=== PATIENT | female | born 1950 | race Caucasian/White ===

== ENCOUNTER → 2019-04-04 08:41 | Outpatient (CLI) | payer MEDICARE, SELFPAY ==
--- NOTE | 2019-04-04 | DI.MG.S_ITS ---
BILATERAL DIGITAL SCREENING MAMMOGRAM 3D/2D WITH CAD POST LUMPECTOMY: 04/04/2019 CLINICAL: Routine screening. Personal history of left breast cancer. Family history of breast cancer. Comparison is made to exams dated: 02/22/2018 mammogram, 02/06/2017 mammogram, and 02/01/2017 mammogram - [facility]. There are scattered fibroglandular elements in both breasts. Current study was also evaluated with a Computer Aided Detection (CAD) system. There are benign post operative findings in both breasts. There also is a benign biopsy clip in the right breast. No significant masses, calcifications, or other findings are seen in either breast. There has been no significant interval change. IMPRESSION: There is no mammographic evidence of malignancy. A 1 year screening mammogram is recommended. This exam was interpreted at Station ID: [id number]. NOTE: For mammograms, a report in lay terms will be sent to the patient. Approximately 15% of breast malignancies will not be visualized mammographically. In the management of a palpable breast mass, a negative mammogram must not discourage biopsy of a clinically suspicious lesion. Electronically Signed By: Zhanna leach/tio:04/07/2019 12:48:40 copy to: John Arana letter sent: Normal Exam ACR BI-RADS Category 2: Benign Finding(s) 3342F
== END ==
PROVIDERS: PCP Family Medicine; Referring Provider Internal Medicine Hematology & Oncology; Visit Provider Family Medicine
DX: Z12.31 Encounter for screening mammogram for malignant neoplasm of breast (principal); Z85.3 Personal history of malignant neoplasm of breast; Z80.3 Family history of malignant neoplasm of breast
CPT/HCPCS: 77063; 77067

== ENCOUNTER → 2019-04-15 11:09 | Outpatient (CLI) | payer MEDICARE, SELFPAY ==
--- NOTE | 2019-04-15 | DI.CT.S_ITS ---
PROCEDURE: CT ABDOMEN PELVIS W CON INDICATIONS: ABDOMINAL PAIN TECHNIQUE: After the administration of oral and intravenous contrast, 5 mm thick sections acquired from the diaphragms to the symphysis. 5 mm thick coronal and sagittal reformats were performed. For radiation dose reduction, the following was used: automated exposure control, adjustment of mA and/or kV according to patient size. COMPARISON: [facility], CT, CT CHEST WO CON, 04/03/2016, 10:27. FINDINGS: Image quality: Excellent. ABDOMEN: Lung bases: Lung bases are clear. Heart size is normal. Solid organs: Liver is normal in size and enhancement. Gallbladder appears partially contracted. Biliary system is non-dilated. Pancreas enhances normally. Spleen is normal in size and enhancement. No adrenal nodules. Kidneys are normal in size and enhancement, without hydronephrosis. Peritoneum and bowel: Stomach, small bowel, and colon loops are normal in caliber and wall thickness. No free fluid or air. Nodes and vessels: No retroperitoneal or mesenteric adenopathy. Aorta and inferior vena cava are normal in caliber. Miscellaneous: No ventral hernias. PELVIS: Genitourinary: Bladder wall thickness is normal. Miscellaneous: No inguinal hernias or adenopathy. A normal appendix is seen in the right lower quadrant. There is mild sigmoid diverticulosis without acute diverticulitis. Bones: No suspicious bony lesions. No vertebral body compression fractures. IMPRESSION: Source of abdominal pain is not seen. Normal appendix found. Mild diverticulosis involving sigmoid colon, without acute diverticulitis. Dictated by: Montana Chatman M.D. on 04/15/2019 at 15:10 Approved by: Montana Chatman M.D. on 04/15/2019 at 15:13
== END ==
PROVIDERS: PCP Student in an Organized Health Care Education/Training Program; Visit Provider Student in an Organized Health Care Education/Training Program
DX: R10.9 Unspecified abdominal pain (principal); K57.30 Diverticulosis of large intestine without perforation or abscess without bleeding
CPT/HCPCS: 74177; Q9967

== ENCOUNTER 2019-04-25 13:18 | Day surgery (SDC) | payer MEDICARE, SELFPAY ==
[2019-04-25] VITALS (7 sets, daily range): BP systolic 116–178; BP diastolic 71–103; PULSE 86–121; RESP 11–16; TEMP 36.3–36.7; O2SAT 94–99; BMI 26.6
--- NOTE | 2019-04-25 | PATH_ITS ---
[facility] Accession Number: [id number] . 01 Material submitted: . PART A: duodenum - THIRD PORTION DOUDENUM PART B: pylorus - PYLORUS PART C: gastrointestinal site - FUNDUS PART D: gastrointestinal site - BODY PART E: esophagus, E-G Junction - GE JUNCTION PART F: colon - CECAL BIOPSY PART G: colon - ASCENDING COLON BIOPSIES 2 MM PART H: colon - HEPATIC FLEXURE BIOPSY PART I: colon - TRANSVERSE COLON BIOPSY PART J: colon - SPLENIC FLEXURE BIOPSY PART K: colon - SIGMOID . 01 Clinical history: . A-D: H.PYLORI . 02 Diagnosis: A. Duodenum, Third Part, Biopsy: Duodenal mucosa with no diagnostic abnormality. Negative for active inflammation, features of sprue, dysplasia or malignancy. . B. Pylorus, Biopsy: Gastric antral mucosa with chronic active Helicobacter pylori gastritis. A moderate number of organisms morphologically consistent with Helicobacter pylori highlighted by immunohistochemistry. Negative for intestinal metaplasia, dysplasia or malignancy. . C, D. Fundus, Body, Biopsies: Chronic active Helicobacter pylori gastritis. Negative for intestinal metaplasia, dysplasia or malignancy. . E. Gastroesophageal Junction: Squamocolumnar junctional mucosa with mild chronic inflammation. Negative for specialized intestinal metaplasia, dysplasia or malignancy. . F. Cecum, Biopsy: Colonic mucosa with no diagnostic abnormality. Negative for active or microscopic colitis. Negative for granulomata, dysplasia or malignancy. . G. Ascending Colon Polyp, 2 mm, Biopsy: Fragment of tubular adenoma and fragments of colonic mucosa with no diagnostic abnormality. . H-K. Hepatic Flexure, Transverse Colon, Splenic Flexure, Sigmoid Colon, Biopsies: Colonic mucosa with no diagnostic abnormality. Negative for active or microscopic colitis. Negative for granulomata, dysplasia or malignancy. [facility]/04/29/2019 . 02 Electronically signed: . Ilya Glover MD, PhD, Pathologist NPI- [id number] . 01 Gross description: . Part A: THIRD PORTION DOUDENUM: Received in formalin are 3 fragment(s) of ji, soft tissue measuring 0.3 x 0.2 x 0.2 cm to 0.2 x 0.1 x 0.1 cm submitted entirely in 1 cassette(s) Part B: PYLORUS: Received in formalin are 2 fragment(s) of ji, soft tissue measuring 0.5 x 0.3 x 0.2 cm to 0.3 x 0.2 x 0.1 cm submitted entirely in 1 cassette(s) Part C: FUNDUS: Received in formalin is 1 fragment(s) of ji, soft tissue measuring 0.3 x 0.3 x 0.3 cm submitted entirely in 1 cassette(s) Part D: BODY: Received in formalin is 1 fragment(s) of ji, soft tissue measuring 0.6 x 0.2 x 0.1 cm submitted entirely in 1 cassette(s) Part E: GE JUNCTION: Received in formalin are multiple fragment(s) of ji, soft tissue measuring 0.2 x 0.2 x 0.1 cm in aggregate submitted entirely in 1 cassette(s) Part F: CECAL BIOPSY: Received in formalin are 3 fragment(s) of ji, soft tissue measuring 0.8 x 0.4 x 0.1 cm to 0.3 x 0.2 x 0.1 cm submitted entirely in 1 cassette(s) Part G: ASCENDING COLON BIOPSIES 2 MM: Received in formalin are 4 fragment(s) of ji, soft tissue measuring 0.9 x 0.3 x 0.1 cm to 0.3 x 0.2 x 0.2 cm submitted entirely in 1 cassette(s) Part H: HEPATIC FLEXURE BIOPSY: Received in formalin is 1 fragment(s) of ji, soft tissue measuring 0.3 x 0.2 x 0.1 cm submitted entirely in 1 cassette(s) Part I: TRANSVERSE COLON BIOPSY: Received in formalin are 3 fragment(s) of ji, soft tissue measuring 0.5 x 0.4 x 0.1 cm to 0.2 x 0.2 x 0.1 cm submitted entirely in 1 cassette(s) Part J: SPLENIC FLEXURE BIOPSY: Received in formalin are 2 fragment(s) of ji, soft tissue measuring 0.3 x 0.3 x 0.1 cm to 0.3 x 0.2 x 0.2 cm submitted entirely in 1 cassette(s) Part K: SIGMOID: Received in formalin is 1 fragment(s) of ij, soft tissue measuring 0.8 x 0.4 x 0.1 cm submitted entirely in 1 cassette(s) /CKI /CKI . 02 Microscopic: . Part B) An immunohistochemical stain is performed to evaluate for Helicobacter organism and highlights a moderate number of organisms morphologically compatible with Helicobacter pylori. A control stain shows appropriate reactivity. . * This test was developed and its performance characteristics determined by [facility]. It has not been cleared or approved by the U.S. Food and Drug Administration. The FDA has determined that such clearance or approval is not necessary. This test is used for clinical purposes. It should not be regarded as investigational or for research. . 02 Pathologist provided ICD-10: K29.70, B96.81, D12.2, R19.4 . 02 CPT . 838847, 380241, 859593, 773722, 747115, 157469, 201131, 593008, 935052, 522259, 096976, F28011 Specimen Comment: A duplicate report has been generated due to demographic updates. Performed at: 01 [facility] [address] [address], [place], [place] [id number] MD Pierre Winston MD Phone: [phone] Performed at: [address] [id number] MD Guadalupe Snell MD Phone: [phone]
[2019-04-25] MEDS: SODIUM CHLORIDE 0.9% 1,000 ML 200 ML IV (14:08)
--- NOTE | 2019-04-25 14:59 | PM.PREOP ---
Pre-operative Note Interval Note History & Physical reviewed/Exam performed by Physician: Yes Changes to H&P: No H&P completed within 30 days and has changed as indicated here:: The current H&P was reviewed. The patient was reexamined. Re-evaluation of the patient confirms the necessity for the scheduled procedure. No change has occurred in the patient?s condition since the H&P was completed less than 30 days ago. ASA Class (for procedural sedation): III
[2019-04-25] MEDS: LIDOCAINE 4% SOLN 50 ML 20 ML TOP (15:01)
[2019-04-25] MEDS: TETRACAINE/BENZOCAINE/BUTAMBEN (CETACAINE) BOTTLE 1 SPRAY TOP (15:01)
--- NOTE | 2019-04-25 15:01 | PM.OP.ENDO ---
Operative Date/Time/Diagnoses Date of procedure: 04/25/19 Time of procedure: 15:00 Pre-op diagnosis: 1. Screening for colon cancer, 2. Hematochezia, 3. Abdominal pain, 4. Diarrhea Post-op diagnosis: other (Cecal polyp x1, 2 mm) Procedure & Clinicians Study performed: 1. Colonoscopy with cold biopsy Same procedure as scheduled: Yes Indications: Screening for colon cancer, hematochezia, abdominal pain, diarrhea Surgeon: Jaci Davila Procedure Notes SCOAP/Timeout: 15:04 Procedure in detail: ENDOSCOPIST: Jaci Davila MD PROCEDURE: Colonoscopy with cold biopsy INDICATIONS: 1. Screening for colon cancer 2. Hematochezia 3. Abdominal pain 4. Diarrhea MEDICATION: Levsin 0.125 mg sublingual, incremental doses of Versed and fentanyl until appropriate level of sedation achieved. ASA CLASS: 3 CECAL WITHDRAWAL TIME: 19 minutes COMPLICATIONS: None. EXTENT OF PROCEDURE: Cecum. QUALITY OF PREP: Good with portions of liquid stool. PROCEDURE: Prior to insertion of the colonoscope, a digital rectal examination was accomplished with circumferential palpation of the distal rectal mucosa without significant findings being noted. The high-definition colonoscope was passed into the rectum in the usual fashion and advanced over to the cecum without difficulty. The ileocecal valve, appendiceal stoma, and medial wall all could be inspected and no abnormalities were seen. Random biopsies were taken throughout withdrawal. ASCENDING COLON: As the colonoscope was withdrawn, care was taken to expose and inspect the haustral folds. A 2 mm polyp was noted and removed with cold biopsy forceps, excellent hemostasis noted. HEPATIC FLEXURE: Normal no polyps, diverticula or other abnormalities. TRANSVERSE COLON: Normal no polyps, diverticula or other abnormalities. DESCENDING COLON: Moderate diverticulosis, noninflamed, otherwise normal, no polyps or other abnormalities. One random biopsy was taken superficial to a blood vessel, bleeding noted. Hemoclip placed with excellent hemostasis. SIGMOID COLON: Moderate diverticulosis, noninflamed, otherwise normal, no polyps or other abnormalities. RECTUM: Normal. J maneuver was produced. There was no significant perianal disease. The J maneuver was broken. The remainder of the rectum was inspected and there was no external hemorrhoid disease. The scope was withdrawn. IMPRESSION: 1. Cecal polyp x1, 2 mm, removed with cold biopsy forceps 2. Left-sided diverticulosis, moderate PLAN: 1. Follow-up clinic status post pathology results. The possibility of a missed lesion including a malignancy has been discussed with the patient previously. Potential alarm symptoms have been discussed and should be reported immediately. Scope withdrawal time: 19 minutes Sedation minutes: 42 Findings: polyp Recommendations: Other recommendation (Follow up in clinic in 2 weeks.) Follow up: weeks (2) Disposition: PACU
--- NOTE | 2019-04-25 15:09 | SUR.OPER ---
UPPER DENTURES AND GLASSES IN LABELED CONTAINERS TO PACU WITH PATIENT
--- NOTE | 2019-04-25 15:29 | SUR.OPER ---
H AND P WRITTEN FORM TO CHART- Silviano OCONNOR RN AND Red SHERIDAN RN
[2019-04-25] MEDS: MIDAZOLAM 5 MG/5 ML VIAL IV (15:33)
[2019-04-25] MEDS: fentaNYL 250 MCG/5 ML INJ IV (15:34)
--- NOTE | 2019-04-25 15:59 | SUR.PHASEI ---
Dr tyler, showing pictures to patient. Pt. aroused easily, resp unlabored, skin warm and dry.
--- NOTE | 2019-04-25 16:06 | PM.OP.ENDO ---
Operative Date/Time/Diagnoses Date of procedure: 04/25/19 Time of procedure: 15:00 Pre-op diagnosis: 1. Hematochezia, 2. Abdominal pain, 3. Diarrhea Post-op diagnosis: same Procedure & Clinicians Study performed: EGD with biopsy Same procedure as scheduled: Yes Indications: 1. Hematochezia, 2. Abdominal pain, 3. Diarrhea Surgeon: Jaci Davila Procedure Notes SCOAP/Timeout: 1504 Procedure in detail: ENDOSCOPIST: Jaci Davila MD PROCEDURE: EGD with biopsy INDICATIONS: 1. Hematochezia 2. Abdominal pain 3. Diarrhea MEDICATION: Incremental doses of Versed and fentanyl until an appropriate level of sedation was achieved. ASA Ratin DURATION OF PROCEDURE: 15 minutes. COMPLICATIONS: None. LIMITATIONS: None EXTENT OF PROCEDURE: Third portion of the Duodenum. PROCEDURE: The high-definition gastroduodenoscope was introduced into the posterior oropharynx under direct vision after Hurricaine spray, noted IV sedation, and proper informed consent. The esophagus was identified and intubated under direct visualization. The scope was quickly passed through the esophagus and into the fundus of the stomach. A clear fundal pool was aspirated. The scope was then advanced to the antrum and the pylorus was identified. The scope was passed through the pylorus into the second and third portions of the duodenum. No abnormalities were noted in the duodenum, duodenal bulb or pyloric channel. Random biopsies taken x2. The antrum had mild superficial hyperemesis, random biopsies taken x2. J maneuver was produced. No abnormalities were noted of the proximal body, fundus or cardia. Random biopsy taken x1. No hiatal hernia was noted. Scope was broken out of the J maneuver and the remainder of the stomach was carefully inspected upon withdrawal and was normal. The stomach was carefully deflated of all air on withdrawal. The distal esophagus was carefully inspected and the Z line was noted to be irregular with the top of the gastric folds at 37 cm, most proximal circumferential extent at 36 cm and the maximum extent of the metaplasia at 35 cm. The remainder of the esophagus was normal upon withdrawal. The larynx and vocal cords appeared to be unremarkable. IMPRESSION: 1. Antritis, mild 2. Irregular Z-line 3. 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 Follow-up in clinic status post pathology results. The possibility of missed lesion including a malignancy was discussed prior with the patient. Potential alarm symptoms have been discussed and should be reported by the patient immediately. Scope withdrawal time: 15 minutes Sedation minutes: 15 Findings: other findings (ESOM C1M2, antritis) Complications: none Recommendations: Other recommendation (Follow-up in clinic status post pathology results.) Follow up: weeks (2) Disposition: PACU
--- NOTE | 2019-04-25 16:12 | SUR.PHASEI ---
Addendum entered by Racheal Cook R.N. 04/25/19 16:14: Scot Vizcaino RN did not assume care of this patient (took over another patient). Original Note: Patient aroused spontaneous, acknowledged that she would like some ice chips, Pt. fell asleep while they were being obtained. VSS Report to Scot Vizcaino RN
--- NOTE | 2019-04-25 16:24 | SUR.PHASEI ---
Stable, swallowing without difficulty. Glasses and upper denture returned to patient.
--- NOTE | 2019-04-25 17:50 | SUR.PHASEII ---
Pt dressed when ready and left when ready and in stable condition.
== END 2019-04-25 17:15 | disposition home or self-care (01) ==
PROVIDERS: PCP Student in an Organized Health Care Education/Training Program; Visit Provider Student in an Organized Health Care Education/Training Program
PROC: 0DJ08ZZ Inspection of Upper Intestinal Tract, Via Natural or Artificial Opening Endoscopic (ICD-10-PCS; CPT 43235; principal; 2019-04-25 15:00)
PROC: 0DJD8ZZ Inspection of Lower Intestinal Tract, Via Natural or Artificial Opening Endoscopic (ICD-10-PCS; CPT 45378; 2019-04-25 15:00)
DX: K29.70 Gastritis, unspecified, without bleeding (principal); B96.81 Helicobacter pylori [H. pylori] as the cause of diseases classified elsewhere; K57.30 Diverticulosis of large intestine without perforation or abscess without bleeding; D12.2 Benign neoplasm of ascending colon
CPT/HCPCS: 45380; 88305; 88342; J2250; J3010

== ENCOUNTER → 2020-05-05 11:51 | Outpatient (CLI) | payer MEDICARE, SELFPAY ==
--- NOTE | 2020-05-05 | DI.MG.S_ITS ---
BILATERAL DIGITAL SCREENING MAMMOGRAM 3D/2D WITH CAD POST LUMPECTOMY: 05/05/2020 CLINICAL: Routine screening. Family history of breast cancer. Breast cancer. Comparison is made to exams dated: 04/04/2019 mammogram - [facility], 02/22/2018 mammogram, and 02/06/2017 mammogram - [facility]. There are scattered fibroglandular elements in both breasts. Current study was also evaluated with a Computer Aided Detection (CAD) system. There are benign post operative findings and biopsy clip in the right breast. There also are benign post operative findings in the left breast. No significant masses, calcifications, or other findings are seen in either breast. There has been no significant interval change. IMPRESSION: There is no mammographic evidence of malignancy. A 1 year screening mammogram is recommended. This exam was interpreted at Station ID: [id number]. NOTE: For mammograms, a report in lay terms will be sent to the patient. Approximately 15% of breast malignancies will not be visualized mammographically. In the management of a palpable breast mass, a negative mammogram must not discourage biopsy of a clinically suspicious lesion. Electronically Signed By: Anthony conley/tio:05/06/2020 09:33:25 letter sent: Normal Exam ACR BI-RADS Category 2: Benign Finding(s) 3342F
== END ==
PROVIDERS: PCP Student in an Organized Health Care Education/Training Program; Referring Provider Student in an Organized Health Care Education/Training Program; Visit Provider Student in an Organized Health Care Education/Training Program
DX: Z12.31 Encounter for screening mammogram for malignant neoplasm of breast (principal); Z85.3 Personal history of malignant neoplasm of breast; Z80.3 Family history of malignant neoplasm of breast
CPT/HCPCS: 77063; 77067

== ENCOUNTER → 2021-02-16 12:22 | Outpatient (ROUT) | payer MEDICARE, SELFPAY ==
[2021-02-16 12:27] LABS: Add Manual Diff / Slide Review NO; Basophils Absolute Auto 0 /uL (0-100); Basophils Percent Auto 0.3 % (0-2); Eosinophils Absolute Auto 0 /uL (0-450); Eosinophils Percent Auto 0.3 % (2-4); Hematocrit 42.6 % (36-46); Hemoglobin 14.1 g/dL (12.0-16.0); Lymphocytes Absolute Auto 3400 /uL (1100-4500); Lymphocytes Percent Auto 21.7 % (25-40); Mean Corpuscular Hemoglobin 27.9 PG (26-34); Mean Corpuscular Volume 84.6 fL (80-100); Monocytes Absolute Auto 800 /uL (0-900); Neutrophils Absolute Auto 11400 /uL (1500-7000); Neutrophils Percent Auto 72.7 % (50-75); Platelet Count 426 X10^3/uL (150-400); Red Blood Cell Count 5.04 X10^6/uL (4.0-5.2); Red Cell Distribution Width 14.5 % (11.6-14.8); White Blood Cell Count 15.6 X10^3/uL (4.5-11.0)
[2021-02-16 12:41] LABS: Alanine Aminotransferase 22 IU/L (<35); Albumin 4.4 g/dL (3.5-5.0); Albumin Globulin Ratio 1.2 (1.0-2.8); Alkaline Phosphatase 123 U/L (38-126); Aspartate Aminotransferase 34 IU/L (14-36); BUN Creatinine Ratio 20.9 (6-22); Bilirubin Total 0.2 mg/dL (0.2-1.3); Blood Urea Nitrogen 19 mg/dL (7-17); Calcium 9.8 mg/dL (8.4-10.2); Carbon Dioxide 25 mmol/L (22-32); Chloride 107 mmol/L (98-107); Estimated Glomerular Filt Rate > 60.0 mL/min (>60); Globulin 3.6 g/dL (1.7-4.1); Glucose 103 mg/dL (80-110); HEMOLYSIS < 15 (0-50); Potassium 4.3 mmol/L (3.4-5.1); Sodium 141 mmol/L (137-145)
== END ==
PROVIDERS: PCP Student in an Organized Health Care Education/Training Program; Visit Provider Family Medicine
DX: I10 Essential (primary) hypertension (principal); R53.83 Other fatigue; R00.0 Tachycardia, unspecified
CPT/HCPCS: 80053; 84443; 85025

== ENCOUNTER → 2022-11-01 10:53 | Outpatient (ROUT) | payer MEDICARE, SELFPAY ==
[2022-11-01 12:14] LABS: COVID-19 CEPHEID 4-PLEX PCR Negative (Negative); Influenza A - CEPHEID Flu A NEGATIVE (NEGATIVE); Influenza B - CEPHEID Flu B NEGATIVE (NEGATIVE); Respiratory Syncytial Virus Negative (Negative)
== END ==
PROVIDERS: PCP Student in an Organized Health Care Education/Training Program; Visit Provider Family Medicine
DX: R05.9 Cough, unspecified (principal); R68.83 Chills (without fever); R06.02 Shortness of breath
CPT/HCPCS: 0241U

== ENCOUNTER → 2023-03-22 08:09 | Outpatient (CLI) | payer MEDICARE, SELFPAY ==
--- NOTE | 2023-03-22 | DI.MG.S_ITS ---
BILATERAL DIGITAL SCREENING MAMMOGRAM 3D/2D WITH CAD POST LUMPECTOMY: 03/22/2023 CLINICAL: Routine screening. Personal history of left breast cancer. Family history of breast cancer. Comparison is made to exams dated: 05/05/2020 mammogram, 04/04/2019 mammogram - [facility], and 02/22/2018 mammogram - [facility]. There are scattered areas of fibroglandular density in both breasts (category b / 25%-50% glandular tissue). Current study was also evaluated with a Computer Aided Detection (CAD) system. There are benign post operative findings and biopsy clip in the right breast. There also are benign post operative findings in the left breast. No significant masses, calcifications, or other findings are seen in either breast. There has been no significant interval change. IMPRESSION: BENIGN There is no mammographic evidence of malignancy. A 1 year screening mammogram is recommended. This exam was interpreted at Station ID: [id number]. NOTE: For mammograms, a report in lay terms will be sent to the patient. Approximately 15% of breast malignancies will not be visualized mammographically. In the management of a palpable breast mass, a negative mammogram must not discourage biopsy of a clinically suspicious lesion. Electronically Signed By: Chan villarreal/tio:03/22/2023 08:55:41 letter sent: Normal Exam ACR BI-RADS Category 2: Benign Finding(s) 3342F
== END ==
PROVIDERS: PCP Family Medicine; Referring Provider Family Medicine; Visit Provider Family Medicine
DX: Z12.31 Encounter for screening mammogram for malignant neoplasm of breast (principal); Z85.3 Personal history of malignant neoplasm of breast; Z80.3 Family history of malignant neoplasm of breast
CPT/HCPCS: 77063; 77067

== ENCOUNTER → 2023-10-12 08:20 | Outpatient (CLI) | payer MEDICARE, SELFPAY ==
[2023-10-12 09:34] LABS: Alanine Aminotransferase 23 IU/L (<35); Albumin 4.5 g/dL (3.5-5.0); Albumin Globulin Ratio 1.3 (1.0-2.8); Alkaline Phosphatase 120 U/L (38-126); Aspartate Aminotransferase 34 IU/L (14-36); BUN Creatinine Ratio 17.5 (6-22); Bilirubin Total 0.4 mg/dL (0.2-1.3); Blood Urea Nitrogen 21 mg/dL (7-17); Calcium 10.2 mg/dL (8.4-10.2); Carbon Dioxide 26 mmol/L (22-32); Chloride 104 mmol/L (98-107); Estimated Glomerular Filt Rate 47 mL/min (>60); Globulin 3.6 g/dL (1.7-4.1); Glucose 119 mg/dL (80-110); HEMOLYSIS < 15 (0-50); Sodium 142 mmol/L (137-145); Total Protein 8.1 g/dL (6.3-8.2)
[2023-10-12 09:39] LABS: Potassium 5.7 mmol/L (3.4-5.1)
== END ==
PROVIDERS: PCP Registered Nurse; Referring Provider Registered Nurse; Visit Provider Registered Nurse
DX: N28.9 Disorder of kidney and ureter, unspecified (principal)
CPT/HCPCS: 36415; 80053

== ENCOUNTER 2023-10-12 11:11 | Emergency (ER) | payer MEDICARE, SELFPAY ==
[2023-10-12] VITALS (24 sets, daily range): BP systolic 108–193; BP diastolic 59–123; PULSE 85–134; RESP 12–35; TEMP 36.7; O2SAT 92–98; BMI 26.3
--- NOTE | 2023-10-12 11:41 | DI.RAD.S_ITS ---
PROCEDURE: XR CHEST 1V INDICATIONS: chest pain TECHNIQUE: One view of the chest was acquired. COMPARISON: [facility], , CHEST 2 VIEW, 12/15/2013, 15:40. FINDINGS: Surgical changes and devices: None. Lungs and pleura: Lungs are clear. No pleural effusions or pneumothorax. Mediastinum: Mediastinal contours appear normal. Heart size is normal. Bones and chest wall: No suspicious bony lesions. Overlying soft tissues appear unremarkable. IMPRESSION: No acute cardiopulmonary process. Dictated by: Marilyn Ring M.D. on 10/12/2023 at 12:20 Approved by: Marilyn Ring M.D. on 10/12/2023 at 12:20
[2023-10-12 11:56] LABS: INR 1.2 (0.9-1.3); Prothrombin Time 13.9 SECONDS (9.4-12.5)
[2023-10-12 11:59] LABS: PTT Partial Thromboplastin Tim 29 SECONDS (25.1-36.5)
[2023-10-12] MEDS: METOPROLOL ER 25 MG TABLET PO (11:59)
[2023-10-12] MEDS: OXYCODONE/ACETAMINOPHEN 5/325 TABLET 1 TAB PO (11:59)
[2023-10-12 12:00] LABS: Alanine Aminotransferase 23 IU/L (<35); Albumin 4.5 g/dL (3.5-5.0); Albumin Globulin Ratio 1.1 (1.0-2.8); Alkaline Phosphatase 124 U/L (38-126); Aspartate Aminotransferase 34 IU/L (14-36); BUN Creatinine Ratio 17.8 (6-22); Bilirubin Total 0.5 mg/dL (0.2-1.3); Blood Urea Nitrogen 21 mg/dL (7-17); Carbon Dioxide 24 mmol/L (22-32); Chloride 106 mmol/L (98-107); Creatine Kinase 72 U/L (30-135); Estimated Glomerular Filt Rate 48 mL/min (>60); Globulin 4.1 g/dL (1.7-4.1); Glucose 112 mg/dL (80-110); HEMOLYSIS < 15 (0-50); Magnesium 2.2 mg/dL (1.6-2.3); Potassium 4.5 mmol/L (3.4-5.1); Sodium 139 mmol/L (137-145); Total Protein 8.6 g/dL (6.3-8.2)
[2023-10-12] MEDS: ASPIRIN 81 MG CHEW TAB 324 MG PO (12:00)
[2023-10-12 12:02] LABS: Add Manual Diff / Slide Review NO; Basophils Absolute Auto 100 /uL (0-100); Basophils Percent Auto 0.4 % (0-2); Eosinophils Absolute Auto 100 /uL (0-450); Eosinophils Percent Auto 0.4 % (2-4); Hematocrit 40.5 % (36-46); Hemoglobin 13.3 g/dL (12.0-16.0); Lymphocytes Absolute Auto 3600 /uL (1100-4500); Mean Corpuscular HGB Conc 32.8 % (30-36); Mean Corpuscular Hemoglobin 28.1 PG (26-34); Mean Corpuscular Volume 85.7 fL (80-100); Monocytes Absolute Auto 900 /uL (0-900); Monocytes Percent Auto 5.3 % (3-14); Neutrophils Absolute Auto 11800 /uL (1500-7000); Neutrophils Percent Auto 71.9 % (50-75); Platelet Count 459 X10^3/uL (150-400); Red Blood Cell Count 4.72 X10^6/uL (4.0-5.2); Red Cell Distribution Width 14.3 % (11.6-14.8); White Blood Cell Count 16.4 X10^3/uL (4.5-11.0)
[2023-10-12 12:12] LABS: Troponin I < 0.012 ng/mL (0.01-0.034)
[2023-10-12 12:20] LABS: Lipase 245 U/L (23-300)
--- NOTE | 2023-10-12 12:35 | ED.CHESTPAIN ---
HPI - Chest Pain General Chief Complaint: Chest Pain Stated Complaint: Sent from PCP for swelling and changes to CMP Time Seen by Provider: 10/12/23 11:50 Source: patient Mode of arrival: Ambulatory Limitations: no limitations History of Present Illness HPI narrative: 73-year-old woman with a history of hypertension, hyperlipidemia, depression presents to her primary care doctor complaining of left chest wall pain wrapping from front to back described as an 8/10. Described fevers and chills this morning and increasing pain such that she came in to see her provider. Pain has been present for approximately 3 days. Labs were checked and she was noted to have an elevated potassium at 5.7. She describes the pain as deep within the chest worse with moving, coughing and lying on the left side. She does have a distant history of breast cancer with radiation treatment to that breast. She is not describing any palpitations or lower extremity edema. No nausea vomiting or diarrhea. No headaches Related Data Home Medications Medication Instructions Recorded Confirmed ramipril 10 mg capsule (Altace) 10 mg PO QDAY ##0 02/11/13 04/25/19 venlafaxine 150 mg tablet,extended 150 mg PO QDAY ##0 02/11/13 04/25/19 release 24 hr venlafaxine 75 mg tablet,extended 75 mg PO QDAY ##0 02/11/13 04/25/19 release 24 hr atorvastatin 20 mg tablet 20 mg PO DAILY 04/25/19 04/25/19 metoprolol succinate 25 mg capsule 25 mg PO DAILY 04/25/19 10/12/23 sprinkle, ext. release 24 hr ramipril 10 mg capsule 10 mg PO DAILY 10/12/23 10/12/23 Previous Rx's Medication Instructions Recorded lidocaine 5 % topical patch 1 patch topical DAILY #15 ea 10/12/23 (DermacinRx Lidocan) oxycodone 5 mg tablet 5 mg PO Q6H PRN pain #10 tabs 10/12/23 polyethylene glycol 3350 17 17 g PO DAILY #238 grams 10/12/23 gram/dose oral powder (Miralax) valacyclovir 1 gram tablet 1,000 mg PO TID #21 tabs 10/12/23 Allergies Allergy/AdvReac Type Severity Reaction Status Date / Time No Known Drug Allergies Allergy Verified 10/12/23 11:29 Review of Systems Review of Systems Narrative: Pertinent positive and negative findings as per HPI Patient History Medical History (Updated 10/12/23 @ 16:38 by Corie Bautista MD) History of breast cancer Depression Hypertension Social History household members: friend(s) Smoking Status: Never smoker Smoking Status: Never smoker alcohol intake frequency: 0-2 drinks per day Substance Use Type: does not use Exam Initial Vital Signs Initial Vital Signs: Vital Signs Temperature 98.1 F 10/12/23 11:23 Pulse Rate 134 H 10/12/23 11:23 Respiratory Rate 20 10/12/23 11:23 Blood Pressure 135/87 10/12/23 11:23 Pulse Oximetry 98 10/12/23 11:23 Oxygen Delivery Method Room Air 10/12/23 11:23 General: In moderate distress holding onto her left side in the axillary area just lateral to her breast. Able to give a complete and coherent history. Well-nourished well-developed HEENT: Moist mucous membranes, normal sclera with reactive pupils, Neck: No JVD, supple Respiratory: Lungs are clear to auscultation, no wheezing no rales no rhonchi. Full and symmetrical air movement Chest: Breast is post mastectomy with some radiation scarring and skin changes. No evidence of cellulitis. No shingles. Cardiac: Tachycardic without murmurs Abdomen: Soft, nontender, good bowel tones, no flank pain Skin: Warm and dry, no rashes Neurologic: Grossly neurologically intact with no obvious asymmetries or abnormalities Extremities: No trauma, well perfused Psych: Cooperative, appropriate insight and affect Course Orders Ordered: ED Orders 10/12/23 11:36 Complete Blood Count AUTO DIFF Stat Comprehensive Metabolic Panel Stat Lipase Stat Magnesium Stat PTT Partial Thromboplastin Jamarcus Stat Prothrombin Time INR Stat Troponin & CK Cardiac Panel Stat 10/12/23 11:41 XR chest 1V Stat 10/12/23 11:43 EKG-12 Lead Stat 10/12/23 12:51 CT angio chest PE protocol Stat Discontinued Medications Aspirin (Aspirin 81 Mg Chew Tab) 324 mg PO NOW ONE Stop: 10/12/23 11:42 Last Admin: 10/12/23 12:00 Dose: 324 mg Documented By: PAOLA Labetalol HCl (Labetalol 20 Mg/4 Ml Syringe) 20 mg IV NOW ONE Stop: 10/12/23 12:59 Last Admin: 10/12/23 13:03 Dose: 20 mg Documented By: PAOLA Metoprolol Succinate (Metoprolol Er 25 Mg Tablet) 25 mg PO NOW ONE Stop: 10/12/23 11:54 Last Admin: 10/12/23 11:59 Dose: 25 mg Documented By: PAOLA Oxycodone/Acetaminophen (Oxycodone/Acetaminophen 5/325 Tablet) 1 tab PO NOW ONE Stop: 10/12/23 11:56 Last Admin: 10/12/23 11:59 Dose: 1 tab Documented By: PAOLA Vital Signs Vital signs: Vital Signs - 8 hr 10/12/23 11:23 10/12/23 11:39 10/12/23 11:49 Temperature 98.1 F Pulse Rate 134 H 125 H Respiratory Rate 20 Blood Pressure 135/87 178/96 H Pulse Oximetry 98 96 Oxygen Delivery Method Room Air 10/12/23 11:49 10/12/23 11:59 10/12/23 12:00 Temperature Pulse Rate 116 H 130 H Respiratory Rate 25 H Blood Pressure 178/96 H 170/84 H Pulse Oximetry 95 Oxygen Delivery Method 10/12/23 12:00 10/12/23 12:15 10/12/23 12:30 Temperature Pulse Rate 114 H 112 H 112 H Respiratory Rate 18 18 18 Blood Pressure Pulse Oximetry 94 94 Oxygen Delivery Method 10/12/23 12:30 10/12/23 12:45 10/12/23 12:47 Temperature Pulse Rate 109 H Respiratory Rate 14 Blood Pressure 183/101 H 182/123 H Pulse Oximetry 93 Oxygen Delivery Method 10/12/23 12:47 10/12/23 13:00 10/12/23 13:00 Temperature Pulse Rate 112 H 109 H Respiratory Rate 35 H 24 Blood Pressure 193/96 H Pulse Oximetry 93 93 Oxygen Delivery Method 10/12/23 13:03 10/12/23 13:12 10/12/23 13:12 Temperature Pulse Rate 103 H 93 H Respiratory Rate 33 H Blood Pressure 193/96 H 140/69 Pulse Oximetry 92 Oxygen Delivery Method 10/12/23 13:24 10/12/23 13:24 10/12/23 13:30 Temperature Pulse Rate 90 99 H Respiratory Rate 24 22 Blood Pressure 134/71 Pulse Oximetry 94 92 Oxygen Delivery Method 10/12/23 13:40 10/12/23 13:40 10/12/23 13:45 Temperature Pulse Rate 90 87 Respiratory Rate 26 H 13 Blood Pressure 119/65 Pulse Oximetry 93 93 Oxygen Delivery Method 10/12/23 13:51 10/12/23 14:00 10/12/23 14:00 Temperature Pulse Rate 88 85 Respiratory Rate 15 Blood Pressure 119/65 108/59 L Pulse Oximetry 93 Oxygen Delivery Method 10/12/23 14:15 10/12/23 14:20 10/12/23 14:20 Temperature Pulse Rate 85 85 Respiratory Rate 13 16 Blood Pressure 110/59 L Pulse Oximetry 92 92 Oxygen Delivery Method 10/12/23 14:30 10/12/23 14:40 10/12/23 14:40 Temperature Pulse Rate 87 87 Respiratory Rate 14 14 Blood Pressure 118/68 Pulse Oximetry 93 93 Oxygen Delivery Method 10/12/23 14:45 Temperature Pulse Rate 86 Respiratory Rate 19 Blood Pressure Pulse Oximetry 93 Oxygen Delivery Method MDM - Chest Pain Lab Data 10/12/23 11:36 10/12/23 11:36 Labs: Lab Results 10/12/23 Range/Units 11:36 WBC 16.4 H (4.5-11.0) X10^3/uL RBC 4.72 (4.0-5.2) X10^6/uL Hgb 13.3 (12.0-16.0) g/dL Hct 40.5 (36-46) % MCV 85.7 (80-100) fL MCH 28.1 (26-34) PG MCHC 32.8 (30-36) % RDW 14.3 (11.6-14.8) % Plt Count 459 H (150-400) X10^3/uL Neut % (Auto) 71.9 (50-75) % Lymph % (Auto) 22.0 L (25-40) % Kerr % (Auto) 5.3 (3-14) % Eos % (Auto) 0.4 L (2-4) % Baso % (Auto) 0.4 (0-2) % Neut # (Auto) 11838 H (8926-4501) /uL Lymph # (Auto) 3600 (9294-9414) /uL Kerr # (Auto) 900 (0-900) /uL Eos # (Auto) 100 (0-450) /uL Baso # (Auto) 100 (0-100) /uL PT 13.9 H (9.4-12.5) SECONDS INR 1.2 (0.9-1.3) APTT 29 (25.1-36.5) SECONDS Sodium 139 (137-145) mmol/L Potassium 4.5 D (3.4-5.1) mmol/L Chloride 106 (98-107) mmol/L Carbon Dioxide 24 (22-32) mmol/L BUN 21 H (7-17) mg/dL Creatinine 1.18 H (0.52-1.04) mg/dL Estimated GFR 48 L (>60) mL/min BUN/Creatinine Ratio 17.8 (6-22) Glucose 112 H (80-110) mg/dL Calcium 10.0 (8.4-10.2) mg/dL Magnesium 2.2 (1.6-2.3) mg/dL Total Bilirubin 0.5 (0.2-1.3) mg/dL AST 34 (14-36) IU/L ALT 23 (<35) IU/L Alkaline Phosphatase 124 (38-126) U/L Total Creatine Kinase 72 (30-135) U/L Troponin I < 0.012 (0.01-0.034) ng/mL Total Protein 8.6 H (6.3-8.2) g/dL Albumin 4.5 (3.5-5.0) g/dL Globulin 4.1 (1.7-4.1) g/dL Albumin/Globulin Ratio 1.1 (1.0-2.8) Lipase 245 (23-300) U/L Urine Dip Bedside Urine Glucose Negative Bedside Urine Bilirubin - Negative Bedside Urine Ketone - Negative Urine Specific [place] 1.015 Bedside Urine Occult Blood - Negative Bedside Urine pH 5.5 Bedside Urine Protein - Negative Bedside Urine Urobilinogen - Negative Bedside Urine Nitrite - Negative Bedside Urine Leukocytes - Negative Esterase MDM Narrative Medical decision making narrative: CC: Left chest wall/chest pain for 4 days Complicating co-morbidities: Prior breast cancer, radiation scarring to the same area, hypertension, hyperlipidemia, depression Data collected from: patient Medical records reviewed: No significant medical records are available Differential considered: Pulmonary embolism, pneumonia, compression fracture, zoster prodrome, pneumothorax, acute coronary syndrome was felt to be less likely Exam documented above, pertinent findings include: Patient is holding under her left breast into the left axillary area to help with pain but no abnormal skin findings aside from radiation changes and scarring from her mastectomy are appreciated. She has full and symmetrical air movement and is able to speak in full sentences. Cardiac exam is unremarkable. Abdomen is benign Lab Test results independently reviewed as above. Pertinent findings: CBC shows a leukocytosis at 16.4 without left shift this is similar to CBC in February of 2021 Chemistries show normal potassium at 4.5, creatinine seems to be close to her baseline at 1.18. Liver studies are unremarkable Troponin is undetectable Independently reviewed EKG: Sinus tachycardia at a rate of 115. Rightward axis, no acute ischemic changes Imaging studies independently reviewed: Chest x-ray is unremarkable CT of the chest shows significant kyphoscoliosis no new compression fractures and no acute abnormalities with Radiology interpretation indicating no pulmonary embolus and no acute cardiopulmonary process. Treatments: Patient is given her usual dose of metoprolol as well as an IV dose of labetalol for blood pressure control with success. She is given a single oxycodone and had taken combination ibuprofen/Tylenol prior to arrival. Pain was moderately well controlled. -evaluations: Discussion: 73-year-old woman with left-sided pain in a T5 distribution with no rash or changes appreciated. She was tachycardic and hypertensive. CT angiogram does not show pulmonary embolism. There was initial concern for hyperkalemia that I think was lab error as repeat was appropriate. There was no evidence of leukocytosis and no suggestion of anemia. Pain was moderately controlled with Percocet. Reviewed with her findings and relatively unremarkable workup at this time. I am still concerned that this is a zoster prodrome given the remarkable dermatomal distribution for this. She has had a shingles vaccine. We very clearly reviewed symptoms of shingles. I have given her a prescription for valacyclovir to take should she notice any type of rash developing in this area in the next 1-2 days. In the meantime she is currently using [id number] combination ibuprofen acetaminophen recommended 2 pills every 6 hours and if she has pain that is not controlled she can add an additional 5 mg of oxycodone. If she uses oxycodone she needs to add MiraLax. I have also given her a lidocaine patch to try and if this is effective she can have that prescription filled as well. Have encouraged to return to the emergency department if symptoms worsen or change Discharge Plan Departure Patient Disposition: Home Clinical Impression: Acute chest wall pain Instructions: DI for Shingles Activity Restrictions/Additional Instructions: Thank you for coming in today I did not find any life-threatening explanation for your pain today. You do not have pneumonia, you do not have blood clots in her lungs, there is no new compression fracture or rib fractures appreciated. There is no evidence of heart attack or collapsed lung. Given the distribution of your pain in the single strip just along the left side, I am concerned that this is pain that you are noticing just before a shingles outbreak. I have given you a prescription for [place] acyclovir, an antiviral medication. If you notice any type of redness or blisters at all in the area along the left strip were you are hurting, please start the valacyclovir. In the meantime, you can use 2 of the [id number] combination ibuprofen Tylenol pills every 6 hours. If your pain is not controlled with this you can add 5 mg of oxycodone. Oxycodone is a narcotic and will make you constipated. If you do use the oxycodone, please take a stool softener as well. I have given you a prescription for MiraLax, I typically recommend 1 capful of MiraLax everyday that you take a narcotic We placed a lidocaine patch over the painful area today. If you find this helpful, you can have that prescription filled as well. All prescriptions were electronically transmitted to [facility] [facility] If you find that you are getting worse or develop any new symptoms, please feel free to return to the emergency department for further evaluation. Prescriptions: New valacyclovir 1 gram tablet 1,000 mg PO TID Qty: 21 0RF oxycodone 5 mg tablet 5 mg PO Q6H PRN (Reason: pain) Qty: 10 0RF polyethylene glycol 3350 [Miralax] 17 gram/dose powder 17 g PO DAILY Qty: 238 0RF lidocaine [DermacinRx Lidocan] 5 % adhesive patch,medicated 1 patch topical DAILY Qty: 15 1RF Rx Instructions: leave on most painful area for up to 12 hrs No Action ramipril [Altace] 10 MG capsule 10 mg PO QDAY Qty: 0 venlafaxine 75 MG tablet extended release 24hr 75 mg PO QDAY Qty: 0 venlafaxine 150 MG tablet extended release 24hr 150 mg PO QDAY Qty: 0 atorvastatin 20 mg Tablet 20 mg PO DAILY metoprolol succinate 25 mg Cap,Sprinkle,Er 24hr Dose Pack 25 mg PO DAILY ramipril 10 mg capsule 10 mg PO DAILY Referrals: Kimberly Manzanares ARNP [Primary Care Provider] - Stand Alone Forms: Patient Portal/API
--- NOTE | 2023-10-12 12:51 | DI.CT.S_ITS ---
PROCEDURE: CT ANGIO CHEST PE PROTOCOL INDICATIONS: tachy, Left chest pain TECHNIQUE: After the administration of intravenous contrast, 2 mm thick sections acquired from the pulmonary apices to the posterior costophrenic angles. 3-dimensional maximum intensity projection (MIP) coronal and sagittal reformats were then acquired through the thorax. For radiation dose reduction, the following was used: automated exposure control, adjustment of mA and/or kV according to patient size. COMPARISON: None. FINDINGS: Image quality: Diagnostic. Pulmonary arteries: Pulmonary arteries are normal in size, and demonstrate no intraluminal filling defects to suggest central pulmonary embolism. Lower Neck: No enlarged lymph nodes. Thyroid: No thyroid nodules which require sonographic follow up, per consensus guidelines. Axillae: No enlarged lymph nodes. Chest Wall: Unremarkable. Bones: Unremarkable. Lungs and Pleura: No pneumothorax or pleural effusions. No consolidation or suspicious nodules. Heart: Heart size is normal. No pericardial effusion. Thoracic Vessels: No aortic aneurysm. Mediastinum and [place]: No enlarged lymph nodes. Esophagus: No wall thickening. No hiatal hernia. Upper Abdomen: Visualized upper abdomen solid organs and bowel loops appear normal. IMPRESSION: No pulmonary embolus. No acute cardiopulmonary process. Dictated by: Montana Chatman M.D. on 10/12/2023 at 13:56 Approved by: Montana Chatman M.D. on 10/12/2023 at 13:58
[2023-10-12] MEDS: LABETALOL 20 MG/4 ML SYRINGE IV (13:03)
[2023-10-12] MEDS: LIDOCAINE 5% PATCH 1 EACH TOP (16:49)
== END 2023-10-12 16:55 | disposition home or self-care (01) ==
PROVIDERS: Emergency Provider Emergency Medicine; PCP Registered Nurse
DX: R07.89 Other chest pain (principal); R00.0 Tachycardia, unspecified; N28.9 Disorder of kidney and ureter, unspecified
CPT/HCPCS: 36415; 71045; 71275; 80053; 81003; 82550; 83690; 83735; 84484; 85025; 85610; 85730; 93005; 96374; 99284; Q9967

== ENCOUNTER 2023-10-25 12:13 | Emergency (ER) | payer MEDICARE, SELFPAY ==
[2023-10-25] VITALS (28 sets, daily range): BP systolic 116–197; BP diastolic 68–103; PULSE 84–101; RESP 15–28; TEMP 36.8–36.9; O2SAT 92–98; BMI 29.9
--- NOTE | 2023-10-25 12:21 | DI.RAD.S_ITS ---
PROCEDURE: XR CHEST 1V INDICATIONS: chest pain TECHNIQUE: One view of the chest was acquired. COMPARISON: [facility], CR, XR CHEST 1V, 10/12/2023, 11:49. FINDINGS: Surgical changes and devices: None. Lungs and pleura: Lungs are clear. No pleural effusions or pneumothorax. Mediastinum: Mediastinal contours appear normal. Heart size is normal. Bones and chest wall: No suspicious bony lesions. Overlying soft tissues appear unremarkable. IMPRESSION: No acute cardiopulmonary abnormality is seen. Dictated by: Evangelista Wall M.D. on 10/25/2023 at 13:53 Approved by: Evangelista Wall M.D. on 10/25/2023 at 13:53
[2023-10-25 12:40] LABS: Add Manual Diff / Slide Review NO; Basophils Absolute Auto 100 /uL (0-100); Basophils Percent Auto 0.4 % (0-2); Eosinophils Absolute Auto 200 /uL (0-450); Eosinophils Percent Auto 0.9 % (2-4); Hematocrit 40.8 % (36-46); Hemoglobin 13.4 g/dL (12.0-16.0); Lymphocytes Absolute Auto 4400 /uL (1100-4500); Lymphocytes Percent Auto 26.8 % (25-40); Mean Corpuscular HGB Conc 32.9 % (30-36); Mean Corpuscular Hemoglobin 28.5 PG (26-34); Mean Corpuscular Volume 86.4 fL (80-100); Monocytes Absolute Auto 1100 /uL (0-900); Monocytes Percent Auto 6.4 % (3-14); Neutrophils Absolute Auto 10800 /uL (1500-7000); Neutrophils Percent Auto 65.5 % (50-75); Platelet Count 465 X10^3/uL (150-400); Red Blood Cell Count 4.72 X10^6/uL (4.0-5.2); Red Cell Distribution Width 14.2 % (11.6-14.8); White Blood Cell Count 16.5 X10^3/uL (4.5-11.0)
[2023-10-25 12:46] LABS: INR 1.1 (0.9-1.3); Prothrombin Time 12.9 SECONDS (9.4-12.5)
[2023-10-25 12:49] LABS: PTT Partial Thromboplastin Tim 29 SECONDS (25.1-36.5)
[2023-10-25 12:52] LABS: Alanine Aminotransferase 34 IU/L (<35); Albumin 4.5 g/dL (3.5-5.0); Albumin Globulin Ratio 1.2 (1.0-2.8); Alkaline Phosphatase 112 U/L (38-126); Aspartate Aminotransferase 52 IU/L (14-36); BUN Creatinine Ratio 16.7 (6-22); Bilirubin Total 0.4 mg/dL (0.2-1.3); Blood Urea Nitrogen 19 mg/dL (7-17); Calcium 9.8 mg/dL (8.4-10.2); Carbon Dioxide 28 mmol/L (22-32); Chloride 101 mmol/L (98-107); Creatine Kinase 58 U/L (30-135); Estimated Glomerular Filt Rate 50 mL/min (>60); Globulin 3.9 g/dL (1.7-4.1); Glucose 94 mg/dL (80-110); HEMOLYSIS < 15 (0-50); Lipase 380 U/L (23-300); Magnesium 2.3 mg/dL (1.6-2.3); Potassium 5.1 mmol/L (3.4-5.1); Sodium 138 mmol/L (137-145); Total Protein 8.4 g/dL (6.3-8.2)
[2023-10-25 13:02] LABS: Troponin I < 0.012 ng/mL (0.01-0.034)
[2023-10-25 13:35] LABS: Influenza A - CEPHEID Flu A NEGATIVE (NEGATIVE); Influenza B - CEPHEID Flu B NEGATIVE (NEGATIVE); Respiratory Syncytial Virus Negative (Negative)
[2023-10-25 13:38] LABS: COVID-19 CEPHEID 4-PLEX PCR Negative (Negative)
--- NOTE | 2023-10-25 16:23 | PC.NURSE ---
Patient had redness in her pelvic fold and under the breast that the patient stated is bothering me. Barrier cream applied at patient consent.
[2023-10-25 17:09] LABS: Troponin I < 0.012 ng/mL (0.01-0.034)
--- NOTE | 2023-10-25 18:55 | ED_ITS ---
HPI - Chest Pain General Chief Complaint: Chest Pain Stated Complaint: Left sided chest pain X 14 Time Seen by Provider: 10/25/23 18:09 Source: patient Mode of arrival: Wheelchair History of Present Illness HPI narrative: 73-year-old woman with a history of hypertension, hyperlipidemia depression presents complaining of almost 2 weeks of constant left-sided chest pain worse when she gets up from prominent physician. She was diagnosed with shingles but states that the rash is not hurting. She has a difficult time taking a deep deep breath. When seen 2 weeks ago the pain was very much in a dermatomal distribution T5 left side wrapping under her breast which has a lumpectomy and radiation scarring. With the dermatomal distribution of current for shingles was raised even though she did not have a rash. CT scan looking for pulmonary embolism of the chest did not show any significant underlying findings. She was instructed to try Tylenol and contact her care provider if she did notice a rash to begin acyclovir. She was given lidocaine patch to see if this might be helpful. She was given 10 tablets of oxycodone to also help with pain as well as MiraLax to prevent constipation. Complaints are the same 2 weeks later. Complaints today seem to localize to under her scapula and into her shoulder. She does not complain of abdominal pain, nausea or vomiting. She notes that the oxycodone when she is taken it definitely helps with pain control. Lidocaine patches were ineffective. Related Data Home Medications Medication Instructions Recorded Confirmed venlafaxine 150 mg tablet,extended 150 mg PO QDAY ##0 02/11/13 10/25/23 release 24 hr venlafaxine 75 mg tablet,extended 75 mg PO QDAY ##0 02/11/13 10/25/23 release 24 hr ramipril 10 mg capsule 10 mg PO DAILY 10/12/23 10/25/23 atorvastatin 40 mg tablet 40 mg PO DAILY 10/25/23 10/25/23 metoprolol succinate 25 mg 25 mg PO BID 10/25/23 10/25/23 tablet,extended release 24 hr mirtazapine 15 mg tablet 15 mg PO DAILY 10/25/23 10/25/23 Previous Rx's Medication Instructions Recorded lidocaine 5 % topical patch 1 patch topical DAILY #15 ea 10/12/23 (DermacinRx Lidocan) oxycodone 5 mg tablet 5 mg PO Q6H PRN pain #10 tabs 10/12/23 polyethylene glycol 3350 17 17 g PO DAILY #238 grams 10/12/23 gram/dose oral powder (Miralax) valacyclovir 1 gram tablet 1,000 mg PO TID #21 tabs 10/12/23 oxycodone 5 mg tablet 5 mg PO Q6H PRN pain #20 tabs 10/25/23 Allergies Allergy/AdvReac Type Severity Reaction Status Date / Time No Known Drug Allergies Allergy Verified 10/25/23 11:44 Review of Systems Review of Systems Narrative: Pertinent positive and negative findings as per HPI Patient History Medical History History of breast cancer Depression Hypertension Social History household members: friend(s) Smoking Status: Never smoker Smoking Status: Never smoker alcohol intake frequency: 0-2 drinks per day Substance Use Type: does not use Exam Initial Vital Signs Initial Vital Signs: Vital Signs Temperature 98.4 F 10/25/23 12:15 Pulse Rate 101 H 10/25/23 12:15 Respiratory Rate 18 10/25/23 12:15 Blood Pressure 193/103 H 10/25/23 12:15 Pulse Oximetry 98 10/25/23 12:15 Oxygen Delivery Method Room Air 10/25/23 12:15 General: Healthy appearing, in no acute distress. Able to give a complete and coherent history. Well-nourished well-developed HEENT: Moist mucous membranes, normal sclera with reactive pupils, Neck: No cervical spine tenderness. No radicular pain reproducible with axial loading or manipulation. Respiratory: Lungs are clear to auscultation, no wheezing no rales no rhonchi. Full and symmetrical air movement. She has radiation scarring to the left breast and radiation rash under her breast. This is unchanged Cardiac: Regular rate and rhythm no murmurs no bruits Abdomen: Soft, mild diffuse tenderness throughout. This is not exacerbated in the left upper quadrant. no flank pain Skin: Warm and dry, minimal intertriginous yeast infection under her pannus. It is being treated it is not erythematous and not superinfection. Neurologic: Grossly neurologically intact with no obvious asymmetries or abnormalities Extremities: No trauma, well perfused Psych: Cooperative, appropriate insight and affect Course Orders Ordered: ED Orders 10/25/23 12:45 Covid-19 + FLU A/B + RSV - PCR Stat 10/25/23 16:00 Troponin I Stat 10/25/23 16:13 EKG-12 Lead Stat 10/25/23 19:23 CT abdomen pelvis w con Stat Discontinued Medications Aspirin (Aspirin 81 Mg Chew Tab) 324 mg PO NOW ONE Stop: 10/25/23 12:22 Last Admin: 10/25/23 12:34 Dose: Not Given Documented By: SAMEERA Oxycodone/Acetaminophen (Oxycodone/Acetaminophen 5/325 Tablet) 1 tab PO NOW ONE Stop: 10/25/23 19:25 Last Admin: 10/25/23 19:37 Dose: 1 tab Documented By: SAI Vital Signs Vital signs: Vital Signs - 8 hr 10/25/23 16:11 10/25/23 16:12 10/25/23 16:12 Temperature Pulse Rate 100 H 98 H Respiratory Rate 19 Blood Pressure 173/89 H Pulse Oximetry 96 94 Oxygen Delivery Method 10/25/23 16:15 10/25/23 16:15 10/25/23 16:19 Temperature 98.2 F Pulse Rate 97 H Respiratory Rate 18 Blood Pressure 159/80 H Pulse Oximetry 95 Oxygen Delivery Method 10/25/23 16:30 10/25/23 16:30 10/25/23 16:45 Temperature Pulse Rate 95 H 95 H Respiratory Rate 25 H 25 H Blood Pressure 158/89 H Pulse Oximetry 94 94 Oxygen Delivery Method 10/25/23 16:45 10/25/23 17:00 10/25/23 17:00 Temperature Pulse Rate 91 H Respiratory Rate 21 Blood Pressure 149/81 H 155/80 H Pulse Oximetry 94 Oxygen Delivery Method 10/25/23 17:15 10/25/23 17:15 10/25/23 17:30 Temperature Pulse Rate 91 H 88 Respiratory Rate 21 20 Blood Pressure 138/75 Pulse Oximetry 93 94 Oxygen Delivery Method 10/25/23 17:31 10/25/23 17:31 10/25/23 17:45 Temperature Pulse Rate 88 88 Respiratory Rate 26 H 23 Blood Pressure 184/76 H Pulse Oximetry 94 94 Oxygen Delivery Method 10/25/23 17:45 10/25/23 18:00 10/25/23 18:00 Temperature Pulse Rate 85 Respiratory Rate 20 Blood Pressure 175/82 H 175/86 H Pulse Oximetry 94 Oxygen Delivery Method 10/25/23 18:15 10/25/23 18:15 10/25/23 18:30 Temperature Pulse Rate 87 86 Respiratory Rate 20 17 Blood Pressure 155/80 H Pulse Oximetry 94 94 Oxygen Delivery Method 10/25/23 18:30 10/25/23 18:45 10/25/23 18:45 Temperature Pulse Rate 85 Respiratory Rate 16 Blood Pressure 161/95 H 157/87 H Pulse Oximetry 92 Oxygen Delivery Method 10/25/23 18:56 10/25/23 18:56 10/25/23 19:00 Temperature Pulse Rate 87 Respiratory Rate 16 Blood Pressure 150/86 H 153/76 H Pulse Oximetry 93 Oxygen Delivery Method Room Air 10/25/23 19:00 10/25/23 19:16 10/25/23 19:16 Temperature Pulse Rate 86 94 H Respiratory Rate 15 26 H Blood Pressure 116/71 Pulse Oximetry 92 94 Oxygen Delivery Method Room Air Room Air 10/25/23 19:40 10/25/23 20:00 10/25/23 20:30 Temperature Pulse Rate 93 H 93 H 84 Respiratory Rate 23 17 18 Blood Pressure Pulse Oximetry 95 95 94 Oxygen Delivery Method Room Air Room Air Room Air MDM - Chest Pain Lab Data 10/25/23 12:30 10/25/23 12:30 Labs: Lab Results 10/25/23 10/25/23 10/25/23 Range/Units 12:30 12:45 16:00 WBC 16.5 H (4.5-11.0) X10^3/uL RBC 4.72 (4.0-5.2) X10^6/uL Hgb 13.4 (12.0-16.0) g/dL Hct 40.8 (36-46) % MCV 86.4 (80-100) fL MCH 28.5 (26-34) PG MCHC 32.9 (30-36) % RDW 14.2 (11.6-14.8) % Plt Count 465 H (150-400) X10^3/uL Neut % (Auto) 65.5 (50-75) % Lymph % (Auto) 26.8 (25-40) % [place] % (Auto) 6.4 (3-14) % Eos % (Auto) 0.9 L (2-4) % Baso % (Auto) 0.4 (0-2) % Neut # (Auto) 29737 H (9694-9189) /uL Lymph # (Auto) 4400 (3259-0452) /uL [place] # (Auto) 1100 H (0-900) /uL Eos # (Auto) 200 (0-450) /uL Baso # (Auto) 100 (0-100) /uL PT 12.9 H (9.4-12.5) SECONDS INR 1.1 (0.9-1.3) APTT 29 (25.1-36.5) SECONDS Sodium 138 (137-145) mmol/L Potassium 5.1 (3.4-5.1) mmol/L Chloride 101 (98-107) mmol/L Carbon Dioxide 28 (22-32) mmol/L BUN 19 H (7-17) mg/dL Creatinine 1.14 H (0.52-1.04) mg/dL Estimated GFR 50 L (>60) mL/min BUN/Creatinine Ratio 16.7 (6-22) Glucose 94 (80-110) mg/dL Calcium 9.8 (8.4-10.2) mg/dL Magnesium 2.3 (1.6-2.3) mg/dL Total Bilirubin 0.4 (0.2-1.3) mg/dL AST 52 H (14-36) IU/L ALT 34 (<35) IU/L Alkaline Phosphatase 112 (38-126) U/L Total Creatine Kinase 58 (30-135) U/L Troponin I < 0.012 < 0.012 (0.01-0.034) ng/mL Total Protein 8.4 H (6.3-8.2) g/dL Albumin 4.5 (3.5-5.0) g/dL Globulin 3.9 (1.7-4.1) g/dL Albumin/Globulin Ratio 1.2 (1.0-2.8) Lipase 380 H (23-300) U/L SARS-CoV-2 (PCR) Negative (Negative) Influenza A (RT-PCR) Flu a negative (NEGATIVE) Influenza B (RT-PCR) Flu b negative (NEGATIVE) RSV (PCR) Negative (Negative) Urine Dip Bedside Urine Glucose Negative Bedside Urine Bilirubin - Negative Bedside Urine Ketone - Negative Urine Specific [place] 1.015 Bedside Urine Occult Blood - Negative Bedside Urine pH 6.0 Bedside Urine Protein - Negative Bedside Urine Urobilinogen - Negative Bedside Urine Nitrite - Negative Bedside Urine Leukocytes - Negative Esterase MDM Narrative Medical decision making narrative: CC: Left chest wall pain Complicating co-morbidities: Persistent for over 2 weeks. Her 2nd ER visit and she is had primary care visit in between. Data collected from: patient Medical records reviewed: ER note from October 12 with the same complaints are reviewed. She had a CT angiogram at that time that was unremarkable. She has chronic leukocytosis that is again noticed and appears to be her baseline. There was no evidence of vesicular rash but concern for prodromal shingles was considered. She has not since developed a rash. There was no evidence of new compression fracture, consolidated finding, metastatic lesions to the bones fractures. No underlying etiology was determined. Differential considered: Ruled out at this point include shingles, pulmonary embolism, pneumothorax, pleuritic chest pain, thoracic compression fracture, radicular cervical pain, acute coronary syndrome. Reaching into more expanded possibilities I do not suspect a septic shoulder, with her abdominal pain she may well be having referred pain to the shoulder. With a diffuse abdominal tenderness CT scan of the abdomen is considered. Exam documented above, pertinent findings include: No skin findings, she is complaining more of pain subscapular on the left side radiating up into the left shoulder. The pain can not be reproduced with direct palpation of the area, manipulation of the scapula or the shoulder. She has no point tenderness along cervical spine and no reproducible tenderness with axial load and tension on nerve roots from the cervical spine. There was no tenderness along thoracic vertebra to suggest either new fracture or diskitis/epidural abscess. She does have moderate diffuse abdominal pain. Is not specifically localizing to the left upper quadrant. Lab Test results independently reviewed as above. Pertinent findings: CBC shows persistent leukocytosis as has been seen at all prior visits Chemistries are unremarkable. Unchanged from initial exam. Lipase on the was 245 and today is 380. She does not have upper abdominal pain on the left side Troponin is undetectable Serology screening shows no COVID influenza or RSV Independently reviewed EKG: Sinus rhythm at a rate of 97. Normal intervals, normal axis no acute ischemic changes Imaging studies independently reviewed: Chest x-ray is unremarkable Chest study for pulmonary embolism done 2 weeks ago is reviewed. With shared decision-making we decided to proceed with a CT scan of the abdomen to see if there is any pathology that might be causing referred pain to the shoulder. CT abd/pelvis does not show any intra-abdominal pathology that might be causing pain radiating up to the left shoulder however there is a note of rib fractures: Per radiology There are anterolateral left rib fractures, adjacent soft tissue stranding likely representing extrapleural hematoma. Consultations: Discuss with Radiology in real time to review all of the rib films. When she had been seen on the bones were interpreted as unremarkable on the chest x-ray as well as the CT angiogram. Chest x-ray today is interpreted as unremarkable. CT scan shows minimally displaced fracture of the left 4th, 5th, and 6th ribs anterolateral. Radiologist reviewed prior films and with closer scrutiny, he does believe that they can be seen on the CT angiogram, clearly easier to see now that there is callus beginning to form. Treatments: Oral Percocet Discussion: 73-year-old woman presents for the 2nd time with complaints of left chest pain. Carefully queried her again about falls or trauma. She states the only thing she can think of is that her very heavy CT will frequently jump up on her chest. Explained to her the probable rib fractures left ribs 4 5 and 6 as a cause of her pain. It is exactly the location of her pain. Discussed with her my discussion with Radiology and that they were very difficult to see on the CT scan when she was here initially and now that they are healing better able to see. They are not causing problems and at this point she does not need any treatment beyond pain control and time to allow it to heal. She notes that the Percocet that she was discharged home with previously has been quite effective. She has 2 pills left. She did feel the MiraLax and has not had difficulties with constipation. Findings reviewed in detail with her. Questions are answered and she is safe for discharge Discharge Plan Departure Patient Disposition: Home Clinical Impression: Multiple rib fractures Qualifiers: Encounter type: subsequent encounter Fracture type: closed Laterality: left F racture healing: with routine healing Qualified Code(s): S22.42XD - Multiple fractures of ribs, left side, subsequent encounter for fracture with routine healing Instructions: DI for Rib Fracture Activity Restrictions/Additional Instructions: Thank you for coming back today With the evaluations done on the and today I think we finally have an explanation for your pain. It looks like you have rib fractures on the left side ribs 4 5 and 6. This is exactly where you are hurting. I did review all of the imaging studies with the radiologist today. Sometimes rib fractures can be very subtle and more easily seen once they start to heal. At seems to be the case here. The radiologist can see where the bones are healing at this point and, in retrospect, when he goes and looks at exactly the same spot on the chest CT that you had on the he states that the fractures were there at that time but are very subtle. Fortunately, there is no underlying problem or reason for your pain. Using pain medication and time is going to help this pain completely resolve. It is important that you make sure that you are continuing to move around and taking the breasts. As the oxycodone that I gave you last time was effective I have given you a couple more doses of this. Please do continue with the MiraLax to make sure that it is not causing constipation Your prescription was electronically transmitted to [facility] It will typically take up to 6 weeks for rib fractures to completely heal. If you find that you are getting worse or develop any new symptoms, please feel free to return to the emergency department for further evaluation. Prescriptions: New oxycodone 5 mg tablet 5 mg PO Q6H PRN (Reason: pain) Qty: 20 0RF Rx Instructions: For left-sided rib fractures. Make sure you are taking a stool softener concurrently. No Action mirtazapine 15 mg tablet 15 mg PO DAILY metoprolol succinate 25 mg tablet extended release 24 hr 25 mg PO BID atorvastatin 40 mg tablet 40 mg PO DAILY venlafaxine 75 MG tablet extended release 24hr 75 mg PO QDAY Qty: 0 venlafaxine 150 MG tablet extended release 24hr 150 mg PO QDAY Qty: 0 ramipril 10 mg capsule 10 mg PO DAILY valacyclovir 1 gram tablet 1,000 mg PO TID Qty: 21 0RF oxycodone 5 mg tablet 5 mg PO Q6H PRN (Reason: pain) Qty: 10 0RF polyethylene glycol 3350 [Miralax] 17 gram/dose powder 17 g PO DAILY Qty: 238 0RF lidocaine [DermacinRx Lidocan] 5 % adhesive patch,medicated 1 patch topical DAILY Qty: 15 1RF Rx Instructions: leave on most painful area for up to 12 hrs Referrals: Kimberly Manzaanres ARNP [Primary Care Provider] - Stand Alone Forms: Patient Portal/API
--- NOTE | 2023-10-25 19:23 | DI.CT.S_ITS ---
PROCEDURE: CT ABDOMEN PELVIS W CON INDICATIONS: diffuse abd pain, ? something causing referred pain L should TECHNIQUE: After the administration of intravenous contrast, axial sections acquired from the lung bases to the pubic symphysis. Coronal and sagittal reformats were performed. For radiation dose reduction, the following was used: automated exposure control, adjustment of mA and/or kV according to patient size. COMPARISON: [facility], CT, CT ABDOMEN PELVIS W CON, 04/15/2019, 12:17. FINDINGS: Image quality: Diagnostic Lower chest: Scattered scarring/atelectasis. No dense consolidation or pleural effusion. Liver: Unremarkable Gallbladder and biliary system: Unremarkable, nondilated Pancreas: No ductal dilation. Spleen: Nonenlarged. No capsular hematoma Adrenals: No nodule Kidneys: No solid mass or hydronephrosis. Vessels and lymph nodes: The main portal vein appears patent. There is no abdominal aortic aneurysm or pathologic lymph nodes by size criteria. Bowel and peritoneum: No evidence of small bowel obstruction. No pathologic abscess or ascites. Colonic diverticula. No convincing inflammation. Nondilated appendix. Body wall: Unremarkable. Pelvis: Bladder is under distended. Reproductive organs appear unremarkable on limited CT evaluation. Bones: No suspicious focal osseous abnormality. There are degenerative changes of the spine. There are minimally displaced fracture of the left 4th, 5th, and 6th ribs anterolateral region, which is only partially evaluated. Soft tissue stranding surrounding this area likely representing extrapleural hematoma. IMPRESSION: There are anterolateral left rib fractures, adjacent soft tissue stranding likely representing extrapleural hematoma. Consider future imaging surveillance to assess for resolution. No acute abdominal pelvic abnormality. Other incidental findings above. Dictated by: Chan Guerrero M.D. on 10/25/2023 at 20:00 Approved by: Chan Guerrero M.D. on 10/25/2023 at 20:06
[2023-10-25] MEDS: OXYCODONE/ACETAMINOPHEN 5/325 TABLET 1 TAB PO ×2 (19:37→22:02)
== END 2023-10-25 22:13 | disposition home or self-care (01) ==
PROVIDERS: Emergency Medicine; Emergency Provider Emergency Medicine; PCP Registered Nurse
DX: S22.42XD Multiple fractures of ribs, left side, subsequent encounter for fracture with routine healing (principal); R07.9 Chest pain, unspecified; Z20.822 Contact with and (suspected) exposure to COVID-19
CPT/HCPCS: 0241U; 36415; 71045; 74177; 80053; 81003; 82550; 83690; 83735; 84484; 85025; 85610; 85730; 93005; 93010; 99284; Q9967

== ENCOUNTER → 2024-04-10 06:54 | Outpatient (CLI) | payer MEDICARE, SELFPAY ==
[2024-04-10 07:24] LABS: Add Manual Diff / Slide Review NO; Basophils Absolute Auto 0 /uL (0-100); Basophils Percent Auto 0.3 % (0-2); Eosinophils Absolute Auto 100 /uL (0-450); Eosinophils Percent Auto 1.1 % (2-4); Hematocrit 39.7 % (36-46); Hemoglobin 13.3 g/dL (12.0-16.0); Lymphocytes Absolute Auto 2700 /uL (1100-4500); Lymphocytes Percent Auto 26.3 % (25-40); Mean Corpuscular HGB Conc 33.4 % (30-36); Mean Corpuscular Hemoglobin 28.4 PG (26-34); Mean Corpuscular Volume 84.9 fL (80-100); Monocytes Absolute Auto 700 /uL (0-900); Monocytes Percent Auto 6.5 % (3-14); Neutrophils Absolute Auto 6800 /uL (1500-7000); Neutrophils Percent Auto 65.8 % (50-75); Platelet Count 462 X10^3/uL (150-400); Red Blood Cell Count 4.67 X10^6/uL (4.0-5.2); Red Cell Distribution Width 14.2 % (11.6-14.8); White Blood Cell Count 10.3 X10^3/uL (4.5-11.0)
[2024-04-10 07:40] LABS: Alanine Aminotransferase 18 IU/L (<35); Albumin 4.5 g/dL (3.5-5.0); Albumin Globulin Ratio 1.2 (1.0-2.8); Alkaline Phosphatase 123 U/L (38-126); Aspartate Aminotransferase 32 IU/L (14-36); BUN Creatinine Ratio 15.7 (6-22); Bilirubin Total 0.5 mg/dL (0.2-1.3); Blood Urea Nitrogen 19 mg/dL (7-17); Calcium 9.2 mg/dL (8.4-10.2); Carbon Dioxide 29 mmol/L (22-32); Chloride 106 mmol/L (98-107); Cholesterol 190 mg/dL (140-199); Estimated Glomerular Filt Rate 46 mL/min (>60); Globulin 3.9 g/dL (1.7-4.1); Glucose 111 mg/dL (80-110); HDL Cholesterol 51 mg/dL (40-60); HEMOLYSIS < 15 (0-50); LDL Cholesterol Calculated 98 mg/dL (<100); Potassium 4.7 mmol/L (3.4-5.1); Sodium 140 mmol/L (137-145); Total Protein 8.4 g/dL (6.3-8.2); Triglycerides 204 mg/dL (35-150)
--- NOTE | 2024-04-10 13:05 | DI.CT.S_ITS ---
PROCEDURE: CT CHEST ABD PEL W CON INDICATIONS: SOB, HX of breast cancer, Mult Rib Fx, HX of radiation TECHNIQUE: After the administration of intravenous contrast, 5 mm thick sections acquired from the lung apices to the symphysis. 5 mm coronal and sagittal reformats were performed, with additional 7 mm MIP reformats through the lungs. For radiation dose reduction, the following was used: automated exposure control, adjustment of mA and/or kV according to patient size. COMPARISON: [facility], CT, CT ABDOMEN PELVIS W CON, 10/25/2023, 19:30. FINDINGS: Image quality: Excellent. CHEST: Lower Neck: No enlarged lymph nodes. Thyroid: No thyroid nodules which require sonographic follow up, per consensus guidelines. Axillae: No enlarged lymph nodes. Chest Wall: No measurable breast mass. Suspected surgical changes of the left breast. Lungs and Pleura: No pneumothorax or pleural effusions. Subpleural reticulation in the anterior left lung, either posttreatment or posttraumatic Multiple regions of bronchial secretions. Biapical scarring. Heart: Heart size is normal. No pericardial effusion. Thoracic Vessels: The aorta and pulmonary arteries demonstrate normal size. Aberrant right subclavian artery. Mediastinum and [place]: No enlarged lymph nodes. Esophagus: No wall thickening. No hiatal hernia. ABDOMEN: Liver: No solid mass. Gallbladder: No radiopaque gallstones or wall thickening. Biliary ducts: No biliary dilation. Pancreas: No ductal dilation. Spleen: Size is within normal limits. Adrenal Glands: No adrenal nodules. Kidneys and Ureters: No hydronephrosis. No solid mass. No complex renal cystic lesion which requires follow up. Stomach and Bowel: Normal colonic caliber, without significant wall thickening. Colonic diverticulosis without evidence of diverticulitis. Peritoneum: No abnormal intraperitoneal fluid. No free air. Ventral Wall: No significant ventral hernia. Abdominal Nodes: No retroperitoneal or mesenteric adenopathy by size criteria. Vessels: Aorta and inferior vena cava are normal in size. PELVIS: Pelvic Organs: Unremarkable. Bladder: No bladder wall thickening, accounting for underdistention. Pelvic Nodes: No enlarged lymph nodes. Miscellaneous: No inguinal hernias are seen. Bones: No aggressive osseous abnormality. Healing left anterior rib fractures. IMPRESSION: No measurable disease. Dictated by: Link May M.D. on 04/10/2024 at 14:54 Approved by: Link May M.D. on 04/10/2024 at 15:00
--- NOTE | 2024-04-10 13:31 | DI.MG.S_ITS ---
BILATERAL DIGITAL SCREENING MAMMOGRAM 3D/2D WITH CAD: 04/10/2024 CLINICAL: Routine screening. Personal history of left breast cancer. Comparison is made to exams dated: 03/22/2023 mammogram, 05/05/2020 mammogram, and 04/04/2019 mammogram - [facility]. There are scattered areas of fibroglandular density in both breasts (category b / 25%-50% glandular tissue). Current study was also evaluated with a Computer Aided Detection (CAD) system. There are benign post operative findings and biopsy clip in the right breast. There also are benign post operative findings in the left breast. No significant masses, calcifications, or other findings are seen in either breast. There has been no significant interval change. IMPRESSION: BENIGN There is no mammographic evidence of malignancy. A 1 year screening mammogram is recommended. This exam was interpreted at Station ID: [id number]. NOTE: For mammograms, a report in lay terms will be sent to the patient. Approximately 15% of breast malignancies will not be visualized mammographically. In the management of a palpable breast mass, a negative mammogram must not discourage biopsy of a clinically suspicious lesion. Electronically Signed By: Prateek swanson/tio:04/10/2024 17:05:10 letter sent: Normal Exam ACR BI-RADS Category 2: Benign Finding(s) 3342F
== END ==
PROVIDERS: PCP Student in an Organized Health Care Education/Training Program; Referring Provider Student in an Organized Health Care Education/Training Program; Visit Provider Student in an Organized Health Care Education/Training Program
DX: Z85.3 Personal history of malignant neoplasm of breast (principal); Z87.81 Personal history of (healed) traumatic fracture; Z12.31 Encounter for screening mammogram for malignant neoplasm of breast; R92.323 Mammographic fibroglandular density, bilateral breasts; N17.9 Acute kidney failure, unspecified; R06.02 Shortness of breath; Z13.29 Encounter for screening for other suspected endocrine disorder; Z13.220 Encounter for screening for lipoid disorders; Z86.2 Personal history of diseases of the blood and blood-forming organs and certain disorders involving the immune mechanism; Z92.3 Personal history of irradiation; K57.90 Diverticulosis of intestine, part unspecified, without perforation or abscess without bleeding
CPT/HCPCS: 36415; 71260; 74177; 77063; 77067; 80053; 80061; 84443; 85025; Q9967

== ENCOUNTER → 2024-04-29 06:52 | Outpatient (CLI) | payer MEDICARE, SELFPAY ==
[2024-04-29 08:57] LABS: Alanine Aminotransferase 17 IU/L (<35); Albumin 4.2 g/dL (3.5-5.0); Albumin Globulin Ratio 1.2 (1.0-2.8); Alkaline Phosphatase 111 U/L (38-126); Aspartate Aminotransferase 27 IU/L (14-36); Bilirubin Total 0.4 mg/dL (0.2-1.3); Blood Urea Nitrogen 22 mg/dL (7-17); Calcium 9.6 mg/dL (8.4-10.2); Carbon Dioxide 30 mmol/L (22-32); Chloride 104 mmol/L (98-107); Estimated Glomerular Filt Rate 46 mL/min (>60); Globulin 3.5 g/dL (1.7-4.1); Glucose 93 mg/dL (80-110); HEMOLYSIS < 15 (0-50); Potassium 4.9 mmol/L (3.4-5.1); Sodium 139 mmol/L (137-145); Total Protein 7.7 g/dL (6.3-8.2)
== END ==
PROVIDERS: PCP Student in an Organized Health Care Education/Training Program; Referring Provider Student in an Organized Health Care Education/Training Program; Visit Provider Student in an Organized Health Care Education/Training Program
DX: N28.9 Disorder of kidney and ureter, unspecified (principal)
CPT/HCPCS: 36415; 80053

== ENCOUNTER → 2024-07-21 08:14 | Outpatient (CLI) | payer MEDICARE, SELFPAY ==
[2024-07-21 09:39] LABS: Alanine Aminotransferase 19 IU/L (<35); Albumin 4.1 g/dL (3.5-5.0); Albumin Globulin Ratio 1.3 (1.0-2.8); Alkaline Phosphatase 110 U/L (38-126); Aspartate Aminotransferase 27 IU/L (14-36); BUN Creatinine Ratio 15.3 (6-22); Bilirubin Total 0.3 mg/dL (0.2-1.3); Blood Urea Nitrogen 18 mg/dL (7-17); Calcium 9.6 mg/dL (8.4-10.2); Carbon Dioxide 31 mmol/L (22-32); Chloride 103 mmol/L (98-107); Estimated Glomerular Filt Rate 48 mL/min (>60); Globulin 3.1 g/dL (1.7-4.1); Glucose 101 mg/dL (80-110); HEMOLYSIS < 15 (0-50); Potassium 4.7 mmol/L (3.4-5.1); Sodium 142 mmol/L (137-145); Total Protein 7.2 g/dL (6.3-8.2)
[2024-07-21 10:48] LABS: Creatinine Urine Random 104.36 mg/dL; Protein (Total) Urine Random 8 mg/dL (0-12); Protein Creatinine Ratio Urine 0.07 GRAM/24H
== END ==
PROVIDERS: PCP Student in an Organized Health Care Education/Training Program; Referring Provider Student in an Organized Health Care Education/Training Program; Visit Provider Student in an Organized Health Care Education/Training Program
DX: N18.9 Chronic kidney disease, unspecified (principal)
CPT/HCPCS: 36415; 80053; 82570; 84156

== ENCOUNTER 2024-09-13 03:36 | Emergency (ER) | payer MEDICARE, SELFPAY ==
[2024-09-13] VITALS (12 sets, daily range): BP systolic 161–180; BP diastolic 84–97; PULSE 105–132; RESP 18; TEMP 35.7–36.9; O2SAT 91–96; BMI 26.4
--- NOTE | 2024-09-13 04:02 | DI.CT.S_ITS ---
PROCEDURE: CT ANGIO ABD/PEL GI BLEED INDICATIONS: Nausea/Vomiting/Diarrhea TECHNIQUE: After the administration of intravenous contrast, 2.5 mm thick sections acquired from the diaphragm to the symphysis. 10 mm maximum-intensity projection (MIP) reformats were then acquired. For radiation dose reduction, the following was used: automated exposure control. COMPARISON: [facility], CT, CT CHEST ABD PEL W CON, 04/10/2024, 13:29. [facility], CT, CT ABDOMEN PELVIS W CON, 10/25/2023, 19:30. FINDINGS: Image Quality: Diagnostic. Abdominal aorta: No aortic aneurysm or evidence of acute aortic syndrome. Mild atherosclerotic irregularity is noted. Mesenteric arteries: Patent without hemodynamically significant stenosis. Renal arteries: Patent without hemodynamically significant stenosis. OTHER: Lower Chest: No significant findings. Liver: No solid mass. Gallbladder: No radiopaque gallstones or wall thickening. Biliary ducts: No biliary dilation. Pancreas: No ductal dilation. Spleen: Size is within normal limits. Adrenal Glands: No adrenal nodules. Kidneys and Ureters: No hydronephrosis. No solid mass. No complex renal cystic lesion which requires follow up. On precontrast imaging, no kidney stones are seen. 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 Stomach and Bowel: Moderate wall thickening can be seen involving the distal colon, beginning at the level of the splenic flexure and continuing through the rectosigmoid region. Mild surrounding inflammatory change can be seen. Sigmoid diverticulosis is also seen. The more proximal colon is within normal limits. Liquid stool can be seen within rectum. A normal appendix is noted. No dilated loops of small bowel are seen. Peritoneum: No abnormal intraperitoneal fluid. No free air. Ventral Wall: No hernia. Abdominal Nodes: No retroperitoneal or mesenteric adenopathy by size criteria. Vessels: Aorta and inferior vena cava are normal in size. PELVIS: Pelvic Organs: No adnexal masses are seen on either side. Bladder: Unremarkable. Pelvic Nodes: No enlarged lymph nodes. Miscellaneous: No inguinal hernias are seen. Bones: No aggressive osseous abnormality. Subacute appearing left anterolateral rib fractures can be seen. IMPRESSION: No acute arterial abnormality is seen. Moderate distal colonic wall thickening can be seen. Please correlate with potential infectious and inflammatory causes of colitis. Distal colonic diverticulosis is seen, although the affected span of colon is larger than is typically seen in patients with diverticulitis. Liquid stool can be seen within the rectum, which is consistent with the given clinical history of diarrhea. No findings of perforation or abscess can be seen. Additional findings: Subacute appearing left anterolateral rib fractures, previously seen Located left renal collecting system. Normal appendix Dictated by: Zane Rutledge M.D. on 09/13/2024 at 8:42 Approved by: Zane Rutledge M.D. on 09/13/2024 at 8:49
--- NOTE | 2024-09-13 04:02 | ED_ITS ---
HPI - Nausea/Vomiting/Diarrhea General Chief complaint: Nausea/Vomiting/Diarrhea Stated complaint: blood in urine Time Seen by Provider: 09/13/24 03:47 Source: patient Mode of arrival: Ambulatory History of Present Illness HPI Narrative: Patient is a 74-year-old female who initially arrives for evaluation of blood in her urine. Upon further discussion patient states that yesterday she had both blood in her urine and blood in her stool. She describes it as bright red blood. States yesterday she would generalized abdominal tenderness. Was crampy in nature. Had at least 1 if not more episodes of diarrhea. Each of which contain blood. She was not on blood thinners. No recent travel. No recent antibiotics. States that after she had the loose bowel movement yesterday her abdominal pain seemed to improve however overnight she was pain multiple times and has had liana red blood. She has had a colonoscopy within the past 5 years per her report. She states that there were no abnormalities noted. Denies fevers. No chest pain, shortness of breath, no vomiting. Related Data Home Medications Medication Instructions Recorded Confirmed metoprolol succinate 25 mg 25 mg PO BID 10/25/23 07/21/24 tablet,extended release 24 hr Previous Rx's Medication Instructions Recorded nystatin 100,000 unit/gram topical 1 applic topical BID #60 grams 04/01/24 powder atorvastatin 40 mg tablet 40 mg PO DAILY #30 tabs 05/19/24 mirtazapine 45 mg tablet 45 mg PO BEDTIME #90 tabs 05/19/24 ramipril 10 mg capsule 10 mg PO DAILY #90 caps 06/18/24 venlafaxine 150 mg tablet,extended 150 mg PO QDAY #90 tabs 07/21/24 release 24 hr venlafaxine 75 mg capsule,extended 75 mg PO DAILY #90 caps 07/21/24 release 24 hr amoxicillin 875 mg-potassium 1 tab PO Q12H 10 days #20 tabs 09/13/24 clavulanate 125 mg tablet Allergies Allergy/AdvReac Type Severity Reaction Status Date / Time No Known Drug Allergies Allergy Verified 07/21/24 07:54 Review of Systems Review of Systems ROS Unobtainable: All systems reviewed & are unremarkable except as noted in HPI and below Patient History Medical History Hypertension History of breast cancer Depression Social History marital status: household members: friend(s) lives independently: Yes pets and animals: Yes seatbelt use: always helmet use: Yes water heater temp set < 120 deg: Yes working smoke detector in home: Yes fire extinguisher in home: Yes carbon monox detector in home: Yes firearms in home: No do you feel safe at home: Yes Smoking Status: Never smoker second hand exposure: No alcohol intake: never substance use type: does not use Smoking Status: Never smoker alcohol intake frequency: holidays/special occasions only Substance Use Type: does not use Exam Initial Vital Signs Initial Vital Signs: Vital Signs Temperature 96.2 F L 09/13/24 03:48 Pulse Rate 132 H 09/13/24 03:48 Respiratory Rate 18 09/13/24 03:48 Blood Pressure 161/84 H 09/13/24 03:48 Pulse Oximetry 96 09/13/24 03:48 Oxygen Delivery Method Room Air 09/13/24 03:48 Const General: cooperative, comfortable and No ill appearing HENMD Head: normal to inspection and normocephalic Resp Effort & Inspection: normal respiratory effort Auscultation: clear to auscultation bilaterally Cardio Rate: tachycardic Rhythm: regular rhythm GI Inspection: normal to inspection and non-distended Palpation: soft and No tender Neuro General: patient alert and patient awake Extrem General: capillary refill normal Course Orders Ordered: ED Orders 09/13/24 04:02 CT angio Abd/Pel GI Bleed Stat 09/13/24 04:05 Complete Blood Count AUTO DIFF Stat Comprehensive Metabolic Panel Stat Lipase Stat 09/13/24 05:35 Urine Culture Stat Urine Microscopic Stat Discontinued Medications Amoxicillin/Clavulanate Potassium (Amoxicillin/Clav 875/125 Mg) 1 tab PO NOW ONE Stop: 09/13/24 06:26 Last Admin: 09/13/24 06:31 Dose: 1 tab Vital Signs Vital signs: Vital Signs - 8 hr 09/13/24 03:48 09/13/24 03:58 09/13/24 04:00 Temperature 96.2 F L Pulse Rate 132 H 120 H 119 H Respiratory Rate 18 Blood Pressure 161/84 H Pulse Oximetry 96 92 92 Oxygen Delivery Method Room Air 09/13/24 04:30 09/13/24 04:55 09/13/24 04:55 Temperature Pulse Rate 111 H 108 H Respiratory Rate Blood Pressure 180/87 H Pulse Oximetry 93 Oxygen Delivery Method 09/13/24 05:00 09/13/24 05:23 09/13/24 05:23 Temperature Pulse Rate 107 H 111 H Respiratory Rate Blood Pressure 163/97 H Pulse Oximetry 92 91 Oxygen Delivery Method MDM - Nausea/Vomiting/Diarrhea Medical Records Attestation: I reviewed the patient's medical records. Lab Data Attestation: I reviewed the patient's lab results. 09/13/24 04:05 09/13/24 04:05 Labs: Lab Results 09/13/24 09/13/24 Range/Units 04:05 05:35 WBC 17.5 H (4.5-11.0) X10^3/uL RBC 4.83 (4.0-5.2) X10^6/uL Hgb 13.4 (12.0-16.0) g/dL Hct 41.1 (36-46) % MCV 85.1 (80-100) fL MCH 27.9 (26-34) PG MCHC 32.7 (30-36) % RDW 14.7 (11.6-14.8) % Plt Count 423 H (150-400) X10^3/uL Neut % (Auto) 75.3 H (50-75) % Lymph % (Auto) 17.3 L (25-40) % [place] % (Auto) 6.5 (3-14) % Eos % (Auto) 0.4 L (2-4) % Baso % (Auto) 0.5 (0-2) % Neut # (Auto) 11191 H (8465-3188) /uL Lymph # (Auto) 3000 (2438-3748) /uL [place] # (Auto) 1100 H (0-900) /uL Eos # (Auto) 100 (0-450) /uL Baso # (Auto) 100 (0-100) /uL Sodium 140 (137-145) mmol/L Potassium 3.7 (3.4-5.1) mmol/L Chloride 103 (98-107) mmol/L Carbon Dioxide 27 (22-32) mmol/L BUN 27 H (7-17) mg/dL Creatinine 1.51 H (0.52-1.04) mg/dL Estimated GFR 36 L (>60) mL/min BUN/Creatinine Ratio 17.9 (6-22) Glucose 118 H (80-110) mg/dL Calcium 9.2 (8.4-10.2) mg/dL Total Bilirubin 0.5 (0.2-1.3) mg/dL AST 38 H (14-36) IU/L ALT 25 (<35) IU/L Alkaline Phosphatase 121 (38-126) U/L Total Protein 8.0 (6.3-8.2) g/dL Albumin 4.3 (3.5-5.0) g/dL Globulin 3.7 (1.7-4.1) g/dL Albumin/Globulin Ratio 1.2 (1.0-2.8) Lipase 271 (23-300) U/L Urine RBC 0-1/hpf (0-5/HPF) Urine WBC 0-1/hpf (0-5/HPF) Ur Squamous Epith Cells 0-1 /hpf (0-5/HPF) Urine Bacteria Occasional (0-1) (None) Ur Culture Indicated? Cult not indicated Vol Urine Centrifuged 10ml (spun) Urine Dip Bedside Urine Glucose Negative Bedside Urine Bilirubin - Negative Bedside Urine Ketone - Negative Urine Specific [place] 1.000 Bedside Urine Occult Blood ++ Bedside Urine pH 6.0 Bedside Urine Protein - Negative Bedside Urine Urobilinogen - Negative Bedside Urine Nitrite - Negative Bedside Urine Leukocytes ++ [address] scan - abdomen/pelvis: Radiologist's Impression: Duplicated left renal collecting system. Mild prominence of the left renal collecting system without evidence of urinary tract stone or perinephric fat stranding Colonic diverticulosis. Subtle short segmental fat stranding in the vicinity of the sigmoid colon. In the appropriate clinical context finding is suggestive mild uncomplicated diverticulitis. Apparent up to 8 mm circumferential wall thickening of the nondistended descending and sigmoid colon (with neighboring somewhat prominent vessel rectal) maybe due to underlying diverticular disease or secondary to nonspecific colitis. No evidence of active bleeding or bowel obstruction Age indeterminate nondisplaced to mildly displaced fractures of the anterior aspects of the left lower ribs Fluid contents in the nondistended rectum maybe incidental or due to diarrhea MDM Narrative Medical decision making narrative: Patient arrived tachycardic however upon further discussion with the patient she states that she frequently is told that her heart rate is elevated when she goes to the doctor's office. Review of her primary care doctor's visit shows that she has had at least 1 visit where her heart rate has been greater than 100. She was not anemic despite the blood that she was having. She does have a leukocytosis but given her presentation today in the find it the CT scan I suspect that this is related to her presentation. She was not been vomiting. Not on blood thinners. Has a benign abdominal exam. CT scan shows findings that are somewhat concerning for diverticulitis. No signs of perforation or abscess. No signs of kidney stone. Urinalysis not consistent with UTI. Given her leukocytosis, tachycardia, abdominal pain and potential diverticulitis on the CT scan will start antibiotics. First dose given here in the emergency department and she tolerated oral intake without difficulty. Will discharge home with a prescription for antibiotics and instructions to follow-up with primary care provider. She was given return precautions. She expressed understanding and agreement with the plan. Discharge Plan Departure Patient Disposition: Home Clinical Impression: Diverticulitis, Rectal bleeding, Hematuria Instructions: DI for Diverticulitis Activity Restrictions/Additional Instructions: A prescription for antibiotics was sent to [facility]. Please take them as directed. I recommend at the beginning of next week you contact your primary care doctor to schedule a follow-up appointment. You may need a referral to see GI to discuss a potential colonoscopy. I also agree with your primary doctor that you should be evaluated by Urology as an outpatient as well. Return to the emergency department for new or worsening symptoms. Prescriptions: New amoxicillin-pot clavulanate 875-125 mg tablet 1 tab PO Q12H 10 Days Qty: 20 0RF No Action atorvastatin 40 mg tablet 40 mg PO DAILY Qty: 30 3RF mirtazapine 45 mg tablet 45 mg PO BEDTIME Qty: 90 3RF venlafaxine 150 mg tablet extended release 24hr 150 mg PO QDAY Qty: 90 3RF venlafaxine 75 mg capsule,extended release 24hr 75 mg PO DAILY Qty: 90 3RF metoprolol succinate 25 mg tablet extended release 24 hr 25 mg PO BID nystatin 100,000 unit/gram powder 1 applic topical BID Qty: 60 3RF ramipril 10 mg capsule 10 mg PO DAILY Qty: 90 3RF Referrals: Katja Guzmán MD [Primary Care Provider] - Stand Alone Forms: Patient Portal/API/Survey
[2024-09-13 04:12] LABS: Add Manual Diff / Slide Review NO; Basophils Absolute Auto 100 /uL (0-100); Basophils Percent Auto 0.5 % (0-2); Eosinophils Absolute Auto 100 /uL (0-450); Eosinophils Percent Auto 0.4 % (2-4); Hematocrit 41.1 % (36-46); Hemoglobin 13.4 g/dL (12.0-16.0); Lymphocytes Absolute Auto 3000 /uL (1100-4500); Lymphocytes Percent Auto 17.3 % (25-40); Mean Corpuscular HGB Conc 32.7 % (30-36); Mean Corpuscular Hemoglobin 27.9 PG (26-34); Mean Corpuscular Volume 85.1 fL (80-100); Monocytes Absolute Auto 1100 /uL (0-900); Monocytes Percent Auto 6.5 % (3-14); Neutrophils Absolute Auto 13200 /uL (1500-7000); Neutrophils Percent Auto 75.3 % (50-75); Platelet Count 423 X10^3/uL (150-400); Red Blood Cell Count 4.83 X10^6/uL (4.0-5.2); Red Cell Distribution Width 14.7 % (11.6-14.8); White Blood Cell Count 17.5 X10^3/uL (4.5-11.0)
[2024-09-13 04:30] LABS: Alanine Aminotransferase 25 IU/L (<35); Albumin 4.3 g/dL (3.5-5.0); Albumin Globulin Ratio 1.2 (1.0-2.8); Alkaline Phosphatase 121 U/L (38-126); Aspartate Aminotransferase 38 IU/L (14-36); BUN Creatinine Ratio 17.9 (6-22); Bilirubin Total 0.5 mg/dL (0.2-1.3); Blood Urea Nitrogen 27 mg/dL (7-17); Calcium 9.2 mg/dL (8.4-10.2); Carbon Dioxide 27 mmol/L (22-32); Chloride 103 mmol/L (98-107); Estimated Glomerular Filt Rate 36 mL/min (>60); Globulin 3.7 g/dL (1.7-4.1); Glucose 118 mg/dL (80-110); HEMOLYSIS < 15 (0-50); Lipase 271 U/L (23-300); Potassium 3.7 mmol/L (3.4-5.1); Sodium 140 mmol/L (137-145)
[2024-09-13 06:02] LABS: Bacteria Urine Occasional (0-1); Culture Indicated Urine Cult Not Indicated; RBC Urine 0-1/HPF (0-5/HPF); Squamous Epithelial Cell Urine 0-1 /HPF (0-5/HPF); Urine Volume 10mL (spun); WBC Urine 0-1/HPF (0-5/HPF)
[2024-09-13] MEDS: AMOXICILLIN/CLAV 875/125 MG 1 TAB PO (06:31)
== END 2024-09-13 06:56 | disposition home or self-care (01) ==
PROVIDERS: Emergency Provider Emergency Medicine; PCP Student in an Organized Health Care Education/Training Program
DX: K57.33 Diverticulitis of large intestine without perforation or abscess with bleeding (principal); R31.9 Hematuria, unspecified; R10.84 Generalized abdominal pain
CPT/HCPCS: 36415; 74174; 80053; 81003; 81015; 83690; 85025; 87086; 99284; Q9967

== ENCOUNTER 2025-04-28 08:51 | Inpatient (IN) | payer MEDICARE, SELFPAY ==
[2025-04-28] VITALS (19 sets, daily range): BP systolic 126–191; BP diastolic 71–95; PULSE 83–104; RESP 15–27; TEMP 36–36.4; O2SAT 93–97; BMI 26.3
--- NOTE | 2025-04-28 09:22 | DI.RAD.S_ITS ---
PROCEDURE: XR CHEST 1V INDICATIONS: Chest Pain TECHNIQUE: One view of the chest was acquired. COMPARISON: [facility], CR, XR CHEST 1V, 10/25/2023, 12:49. FINDINGS: Surgical changes and devices: None. Lungs and pleura: Lungs are clear. No pleural effusions or pneumothorax. Mediastinum: Mediastinal contours appear normal. Heart size is normal. Bones and chest wall: No suspicious bony lesions. Overlying soft tissues appear unremarkable. IMPRESSION: No acute cardiopulmonary abnormality is seen. Dictated by: Tereza De La Rosa MD, PhD on 04/28/2025 at 9:47 Approved by: Tereza De La Rosa MD, PhD on 04/28/2025 at 9:48
--- NOTE | 2025-04-28 09:22 | EKG_ITS ---
[address] [id number] [address] [address] Test Date: 2025-04-28 Pat Name: Ashley Panda Department: Room: Gender: Female Second Baller: MARV : 1950 Requested By: Order Number: [id number] Reading MD: Anselmo Blakely Measurements Intervals [place] Rate: 104 P: 58 GA: 160 QRS: 4 QRSD: 74 T: 45 QT: 336 QTc: 441 Interpretive Statements Sinus tachycardia Nonspecific ST abnormality Electronically Signed On 04-30-2025 13:32:53 PDT by Anselmo Blakely
[2025-04-28 11:00] LABS: Add Manual Diff / Slide Review NO; Hematocrit 43.1 % (36-46); Hemoglobin 14.1 g/dL (12.0-16.0); Lymphocytes Absolute Auto 2300 /uL (1100-4500); Mean Corpuscular HGB Conc 32.7 % (30-36); Mean Corpuscular Hemoglobin 28.2 PG (26-34); Mean Corpuscular Volume 86.1 fL (80-100); Platelet Count 455 X10^3/uL (150-400)
[2025-04-28 11:09] LABS: INR 1.2 (0.9-1.3); Prothrombin Time 13.5 SECONDS (9.4-12.5)
[2025-04-28 11:12] LABS: PTT Partial Thromboplastin Tim 28 SECONDS (25.1-36.5)
[2025-04-28 11:14] LABS: Alanine Aminotransferase 20 IU/L (<35); Albumin 4.8 g/dL (3.5-5.0); Albumin Globulin Ratio 1.1 (1.0-2.8); Alkaline Phosphatase 116 U/L (38-126); Blood Urea Nitrogen 23 mg/dL (7-17); Calcium 9.7 mg/dL (8.4-10.2); Carbon Dioxide 28 mmol/L (22-32); Chloride 104 mmol/L (98-107); Creatine Kinase 63 U/L (30-135); Estimated Glomerular Filt Rate 44 mL/min (>60); Globulin 4.5 g/dL (1.7-4.1); Glucose 91 mg/dL (70-99); HEMOLYSIS < 15 (0-50); Lipase 830 U/L (23-300); Magnesium 2.4 mg/dL (1.6-2.3); Potassium 4.8 mmol/L (3.4-5.1); Sodium 140 mmol/L (137-145); Total Protein 9.3 g/dL (6.3-8.2)
[2025-04-28 11:26] LABS: NT-proBNP (BNP-Adult 18+) 136 pg/mL (<450); Troponin I < 0.012 ng/mL (0.01-0.034)
--- NOTE | 2025-04-28 13:04 | DI.CT.S_ITS ---
PROCEDURE: CT ABDOMEN PELVIS W CON INDICATIONS: abd pain TECHNIQUE: After the administration of intravenous contrast, axial sections acquired from the lung bases to the pubic symphysis. Coronal and sagittal reformats were performed. For radiation dose reduction, the following was used: automated exposure control, adjustment of mA and/or kV according to patient size. COMPARISON: [facility], CT, CT ABDOMEN PELVIS W CON, 04/15/2019, 12:17. FINDINGS: Image quality: Diagnostic. Lower Chest: No significant findings. ABDOMEN: Liver: No solid mass. Gallbladder: No radiopaque gallstones or wall thickening. Biliary ducts: No biliary dilation. Pancreas: No ductal dilation. Spleen: Size is within normal limits. Adrenal Glands: No adrenal nodules. Kidneys and Ureters: Mild left renal cortical scarring. No hydronephrosis. No solid mass. No complex renal cystic lesion which requires follow up. Stomach and Bowel: Multiple diverticula are seen in the colon. There is bowel wall thickening and inflammatory fat stranding surrounding a diverticulum at the sigmoid colon. No focal fluid collection or pneumoperitoneum. No signs bowel obstruction. Normal appendix. Peritoneum: No abnormal intraperitoneal fluid. No free air. Ventral Wall: No significant ventral hernia. Abdominal Nodes: No retroperitoneal or mesenteric adenopathy by size criteria. Vessels: Aorta and inferior vena cava are normal in size. PELVIS: Pelvic Organs: Unremarkable. Bladder: No bladder wall thickening, accounting for underdistention. Pelvic Nodes: No enlarged lymph nodes. Miscellaneous: No inguinal hernias are seen. Bones: No aggressive osseous abnormality. IMPRESSION: Acute uncomplicated sigmoid diverticulitis. Approved by: Jc Medina M.D. on 04/28/2025 at 13:53
--- NOTE | 2025-04-28 13:04 | DI.CT.S_ITS ---
PROCEDURE: CT ANGIO CHEST INDICATIONS: RO dissection TECHNIQUE: After the administration of intravenous contrast, 2.5 mm thick sections acquired from the lung apices to the posterior lung bases. Maximum intensity projection (MIP) oblique sagittal reformats were then acquired parallel to the aortic arch. For radiation dose reduction, the following was used: automated exposure control. COMPARISON: [facility], CT, CT CHEST ABD PEL W CON, 04/10/2024, 13:29. FINDINGS: Image quality: Excellent. Aorta: Aorta and great vessels are normal in size. No mural irregularity or contrast extravasation to suggest aortic injury. Common trunk of the right and left common carotid arteries. 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 No significant diverticulum of [place]. Lower Neck: No enlarged lymph nodes. Thyroid: No thyroid nodules which require sonographic follow up, per consensus guidelines. Axillae: No enlarged lymph nodes. Chest Wall: Postsurgical changes are seen in the left breast.. Bones: Minimally displaced left anterior 4th through 6th rib fractures, which do not appear significantly changed compared to the CT from 04/10/2024. No acute displaced fracture is seen.. Lungs and Pleura: No pneumothorax or pleural effusions. Mild subpleural reticulations at the anterior left lung likely related to prior radiation therapy. No consolidation or suspicious nodules. Heart: Heart size is normal. No pericardial effusion. Thoracic Vessels: Pulmonary arteries demonstrate normal size. No central pulmonary embolus. Mediastinum and [place]: No enlarged lymph nodes. Esophagus: No wall thickening. No hiatal hernia. Upper Abdomen: Visualized upper abdomen solid organs and bowel loops appear normal. IMPRESSION: No aortic aneurysm or acute aortic syndrome. No acute abnormality is seen in the chest. Approved by: Jc Medina M.D. on 04/28/2025 at 13:49
[2025-04-28 13:17] LABS: Troponin I < 0.012 ng/mL (0.01-0.034)
[2025-04-28 14:08] LABS: Procalcitonin 0.122 ng/mL (<0.5)
[2025-04-28] MEDS: CIPROFLOXACIN 400 MG/200 ML PIGGYBACK 200 MG IV (15:04)
--- NOTE | 2025-04-28 15:59 | ED.CHESTPAIN ---
HPI - Chest Pain General Chief Complaint: Chest Pain Stated Complaint: Chest pressure, Lower back pain, SOB Time Seen by Provider: 04/28/25 10:23 Source: patient Mode of arrival: Wheelchair Limitations: no limitations History of Present Illness HPI narrative: Pleasant 75-year-old woman comes to the ER because of chest pressure. She admits that this was accompanied by some nausea and she also has epigastric abdominal pain. And she denies shortness of breath, lightheadedness, palpitations, diaphoresis. Related Data Previous Rx's ?Medication ?Instructions ?Recorded nystatin 100,000 unit/gram topical 1 applic topical BID #60 grams 04/01/24 powder mirtazapine 45 mg tablet 45 mg PO BEDTIME #90 tabs 05/19/24 ramipril 10 mg capsule 10 mg PO DAILY #90 caps 06/18/24 venlafaxine 150 mg tablet,extended 150 mg PO QDAY #90 tabs 07/21/24 release 24 hr venlafaxine 75 mg capsule,extended 75 mg PO DAILY #90 caps 07/21/24 release 24 hr amoxicillin 875 mg-potassium 1 tab PO Q12H #20 tabs 10/21/24 clavulanate 125 mg tablet metoprolol succinate 25 mg 25 mg PO BID #180 tabs 11/13/24 tablet,extended release 24 hr atorvastatin 40 mg tablet 40 mg PO DAILY #90 tabs 02/02/25 Allergies Allergy/AdvReac Type Severity Reaction Status Date / Time No Known Drug Allergies Allergy Verified 04/28/25 09:26 Patient History Medical History Hypertension History of breast cancer Depression Social History marital status: household members: friend(s) lives independently: Yes pets and animals: Yes seatbelt use: always helmet use: Yes water heater temp set < 120 deg: Yes working smoke detector in home: Yes fire extinguisher in home: Yes carbon monox detector in home: Yes firearms in home: No do you feel safe at home: Yes second hand exposure: No alcohol intake: never substance use type: does not use alcohol intake frequency: holidays/special occasions only Exam Initial Vital Signs Initial Vital Signs: Vital Signs Temperature 97.5 F L 04/28/25 09:25 Pulse Rate 104 H 04/28/25 09:25 Respiratory Rate 20 04/28/25 09:25 Blood Pressure 187/90 H 04/28/25 09:25 Pulse Oximetry 96 04/28/25 09:25 Oxygen Delivery Method Room Air 04/28/25 09:25 Const General: cooperative, No in distress and ill appearing [facility] Head: normal to inspection, normocephalic and atraumatic Ears: TM's normal bilaterally Face and sinus: normal facial exam Throat: posterior oropharynx normal Eyes General: Yes appearance normal, both eyes and all related structures Pupils: PERRL Neck Neck: normal visual inspection, full ROM, supple, No positive Brudzinski's sign, No positive Kernig's sign and No tender Resp Effort & Inspection: normal respiratory effort and no respiratory distress Auscultation: clear to auscultation bilaterally Cardio Rate: regular rate Rhythm: regular rhythm Heart Sounds: S1 normal and S2 normal GI Palpation: soft, No firm, No guarding, No mass and tender (diffuse) Auscultation: abnormal bowel sounds General: No CVA tenderness Back/Spine/Pelvis Back: No CVA tenderness Neuro General: patient alert, patient awake and patient oriented x3 Cranial Nerves: CN's II-XI intact bilaterally Course Course Course Narrative: Patient seen and examined by myself upon arrival in the ER. She was meeting SIRS criteria on presentation. However, her chief complaint was chest pain so cardiac workup was undertaken as well. Her troponin was negative x2 and her EKG was unremarkable for acute ischemia. She ended up having an elevated lipase which she was treated with fluids and kept NPO for acute pancreatitis. She was also given cefepime to cover for abdominal sepsis. Subsequently, CT of the abdomen and pelvis was ordered and also showed diverticulitis so she was also started on Cipro and Flagyl. Since she was meeting sepsis criteria with her diverticulitis and also has acute pancreatitis she will be admitted to our hospital. I discussed the case With the hospitalist who accepted her for admission. She also received 30 cc/kg fluid bolus. Orders Ordered: ED Orders 04/28/25 09:22 XR chest 1V Stat EKG-12 Lead Stat 04/28/25 10:40 Complete Blood Count AUTO DIFF Stat Comprehensive Metabolic Panel Stat D Dimer Stat Lipase Stat Magnesium Stat NT-proBNP (BNP-Adult 18+) Stat PTT Partial Thromboplastin Jamarcus Stat Prothrombin Time INR Stat Troponin & CK Cardiac Panel Stat 04/28/25 12:41 Trop I [Troponin I] Stat 04/28/25 13:04 CT abdomen pelvis w con Stat CT angio chest Stat 04/28/25 13:20 Procalcitonin Stat Acetaminophen (Acetaminophen 325 Mg Tablet) 650 mg PO Q6H PRN PRN Reason: Fever/Mild Pain (1-3) Hydromorphone HCl (Hydromorphone Hcl 0.5 Mg/0.5 Ml Syringe) 1 mg IV Q2H PRN PRN Reason: Pain, Severe (7-10) Ciprofloxacin (Cipro) 400 mg in 200 mls @ 200 mls/hr IV Q12H [facility] Last Admin: 04/28/25 15:04 Dose: 200 mls/hr Documented By: DANYA Metronidazole (Flagyl) 500 mg in 100 mls @ 100 mls/hr IV Q8H CHRIS Dextrose/Sodium Chloride (Dextrose 5%-0.9% Ns) 1,000 mls @ 100 mls/hr IV CONT CHRIS Naloxone HCl (Naloxone 0.4 Mg/Ml Vial) 0.2 mg IV Q2MIN PRN PRN Reason: Opiate Reversal Ondansetron HCl (Ondansetron 4 Mg/2 Ml Inj) 4 mg IV Q4HR CHRIS Oxycodone HCl (Oxycodone Ir 5 Mg Tablet) 5 mg PO Q3H PRN PRN Reason: Pain, Moderate (4-6) Pantoprazole Sodium (Pantoprazole 40 Mg Vial) 20 mg IV DAILY [facility] Promethazine HCl (Promethazine 12.5 Mg Supp) 12.5 mg CA Q6HR PRN PRN Reason: Nausea And Vomiting Discontinued Medications Aspirin (Aspirin 81 Mg Chew Tab) 324 mg PO NOW ONE Stop: 04/28/25 09:23 Last Admin: 04/28/25 15:35 Dose: Not Given Documented By: RACH Cefepime HCl 2 gm/ Sodium (Chloride) 100 mls @ 200 mls/hr IV NOW ONE Stop: 04/28/25 14:47 Last Admin: 04/28/25 15:35 Dose: Not Given Documented By: RACH Morphine Sulfate (Morphine 2 Mg/Ml Inj) 2 mg IV NOW ONE Stop: 04/28/25 13:07 Vital Signs Vital signs: Vital Signs - 8 hr 04/28/25 09:25 04/28/25 11:57 04/28/25 12:00 Temperature 97.5 F L Pulse Rate 104 H 92 H Respiratory Rate 20 15 Blood Pressure 187/90 H 156/83 H Pulse Oximetry 96 94 Oxygen Delivery Method Room Air 04/28/25 12:00 Temperature Pulse Rate 92 H Respiratory Rate 19 Blood Pressure Pulse Oximetry 94 Oxygen Delivery Method Room Air MDM - Chest Pain Differential Diagnosis Differential diagnosis: Likely stable angina, unstable angina pectoris, atypical chest pain, st elevation myocardial infarction, costochondritis, chest pain and other (panceratitis, cholecystitis, uti) Lab Data 04/28/25 10:40 04/28/25 10:40 Labs: Lab Results 04/28/25 04/28/25 04/28/25 Range/Units 10:40 12:41 13:20 WBC 12.4 H (4.5-11.0) X10^3/uL RBC 5.01 (4.0-5.2) X10^6/uL Hgb 14.1 (12.0-16.0) g/dL Hct 43.1 (36-46) % MCV 86.1 (80-100) fL MCH 28.2 (26-34) PG MCHC 32.7 (30-36) % RDW 14.2 (11.6-14.8) % Plt Count 455 H (150-400) X10^3/uL Neut % (Auto) 73.8 (50-75) % Lymph % (Auto) 18.8 L (25-40) % [place] % (Auto) 6.5 (3-14) % Eos % (Auto) 0.3 L (2-4) % Baso % (Auto) 0.6 (0-2) % Neut # (Auto) 9100 H (2566-6675) /uL Lymph # (Auto) 2300 (4627-8471) /uL [place] # (Auto) 800 (0-900) /uL Eos # (Auto) 0 (0-450) /uL Baso # (Auto) 100 (0-100) /uL PT 13.5 H (9.4-12.5) SECONDS INR 1.2 (0.9-1.3) APTT 28 (25.1-36.5) SECONDS D-Dimer 836 H (<500) ng/ml Sodium 140 (137-145) mmol/L Potassium 4.8 (3.4-5.1) mmol/L Chloride 104 (98-107) mmol/L Carbon Dioxide 28 (22-32) mmol/L BUN 23 H (7-17) mg/dL Creatinine 1.25 H (0.52-1.04) mg/dL Estimated GFR 44 L (>60) mL/min BUN/Creatinine Ratio 18.4 (6-22) Glucose 91 (70-99) mg/dL Calcium 9.7 (8.4-10.2) mg/dL Magnesium 2.4 H (1.6-2.3) mg/dL Total Bilirubin 0.3 (0.2-1.3) mg/dL AST 36 (14-36) IU/L ALT 20 (<35) IU/L Alkaline Phosphatase 116 (38-126) U/L Total Creatine Kinase 63 (30-135) U/L Troponin I < 0.012 < 0.012 (0.01-0.034) ng/mL NT-Pro-B Natriuret Pep 136 (<450) pg/mL Total Protein 9.3 H (6.3-8.2) g/dL Albumin 4.8 (3.5-5.0) g/dL Globulin 4.5 H (1.7-4.1) g/dL Albumin/Globulin Ratio 1.1 (1.0-2.8) Lipase 830 H (23-300) U/L Procalcitonin 0.122 (<0.5) ng/mL Urine Dip Bedside Urine Glucose Negative Bedside Urine Bilirubin - Negative Bedside Urine Ketone - Negative Urine Specific [place] 1.010 Bedside Urine Occult Blood - Negative Bedside Urine pH 6.0 Bedside Urine Protein - Negative Bedside Urine Urobilinogen - Negative Bedside Urine Nitrite - Negative Bedside Urine Leukocytes - Negative Esterase ECG Data Interpretation: Sinus tachycardia. Rate 104 beats per minute. No acute ST elevation. Discharge Plan Departure Patient Disposition: Admitted as Observation Clinical Impression: Acute diverticulitis Acute pancreatitis Qualifiers: Pancreatitis type: unspecified pancreatitis type Acute pancreatitis complication: no infection or necrosis Qualified Code(s): K85.90 - Acute pancreatitis without necrosis or infection, unspecified Admit Date/Time: 04/28/25 15:21 Admit Provider: Montana Rosenthal
[2025-04-28] MEDS: MORPHINE 2 MG/ML INJ IV (16:16)
[2025-04-28] MEDS: metroNIDAZOLE 500 MG/100 ML PIGGYBACK 100 MG IV ×2 (16:16→23:20)
[2025-04-28] MEDS: PANTOPRAZOLE 40 MG VIAL 20 MG IV (16:17)
[2025-04-28] MEDS: DEXTROSE 5%-0.9% NS 1,000 ML 100 ML IV (17:42)
[2025-04-28] MEDS: ACETAMINOPHEN 325 MG TABLET 650 MG PO (18:49)
--- NOTE | 2025-04-28 18:56 | PM.HP.1 ---
History of Present Illness History of Present Illness Date Patient Seen: 04/28/25 Chief complaint: Chest pain secondary to diverticulitis and pancrea Narrative: Chief complaint: Abdominal pain and chest pain with findings of pancreatitis and diverticulitis History of present illness: 04/28: 75-year-old female had epigastric pain with nausea and vomiting and abdominal pain came to the emergency room for evaluation. She reported sweats and chills nausea with occasional vomiting and pain after eating or drinking Findings in the emergency department significant for lipase of 830 white blood cell count of 12.4 D-dimer 836 BUN [address] imaging of chest abdomen and pelvis significant for sigmoid diverticulitis there is no findings of pancreatic imaging abnormality Review of systems: No unusual weight loss weight gain No headache diplopia blurred vision No chest pain shortness for breath palpitations No paresthesia paresis No urinary symptoms Physical exam: Alert cogent no acute distress does not appear ill HEENT unremarkable Heart rate and rhythm regular Lungs clear Abdomen mildly distended not tender some localized mild tenderness in bilateral lower quadrants and epigastric Extremities no edema Neuro nonfocal For objective laboratory and imaging please see bottom of the note Assessment and plan: Sigmoid diverticulitis uncomplicated started on ciprofloxacin and Flagyl. Continue Cipro and Flagyl Clear liquid tonight Advance diet as tolerated Deescalate to oral antibiotics as indicated Elevated lipase but without imaging findings to indicate pancreatitis with normal imaging a biliary system and gallbladder Suspect elevation of lipase may be due to the diverticulitis (hollow viscus) DVT prophylaxis: Subcutaneous heparin Code status: Full code 55 minutes were involved in the evaluation and treatment of this patient [facility] Medical History Hypertension History of breast cancer Depression Social History marital status: household members: friend(s) lives independently: Yes pets and animals: Yes seatbelt use: always helmet use: Yes water heater temp set < 120 deg: Yes working smoke detector in home: Yes fire extinguisher in home: Yes carbon monox detector in home: Yes firearms in home: No do you feel safe at home: Yes Smoking Status: Never smoker second hand exposure: No alcohol intake: former substance use type: does not use Meds Home Medications and Allergies Home Medications ?Medication ?Instructions ?Recorded ?Confirmed ?Type nystatin 100,000 unit/gram topical 1 applic topical BID #60 grams 04/01/24 04/28/25 Rx powder mirtazapine 45 mg tablet 45 mg PO BEDTIME #90 tabs 05/19/24 04/28/25 Rx ramipril 10 mg capsule 10 mg PO DAILY #90 caps 06/18/24 04/28/25 Rx venlafaxine 150 mg tablet,extended 150 mg PO QDAY #90 tabs 07/21/24 04/28/25 Rx release 24 hr venlafaxine 75 mg capsule,extended 75 mg PO DAILY #90 caps 07/21/24 04/28/25 Rx release 24 hr metoprolol succinate 25 mg 25 mg PO BID #180 tabs 11/13/24 04/28/25 Rx tablet,extended release 24 hr atorvastatin 40 mg tablet 40 mg PO DAILY #90 tabs 02/02/25 04/28/25 Rx Allergies Allergy/AdvReac Type Severity Reaction Status Date / Time No Known Drug Allergies Allergy Verified 04/28/25 09:26 Exam Vital Signs (past 8 hours): - 04/28/25 11:57 04/28/25 12:00 04/28/25 12:00 Temperature Pulse Rate 92 H 92 H Respiratory Rate 15 19 Blood Pressure 156/83 H Pulse Oximetry 94 94 Oxygen Delivery Method Room Air Oxygen Flow Rate 04/28/25 12:30 04/28/25 12:30 04/28/25 13:00 Temperature Pulse Rate 92 H 93 H Respiratory Rate 21 22 Blood Pressure 156/82 H Pulse Oximetry 96 95 Oxygen Delivery Method Oxygen Flow Rate 04/28/25 13:23 04/28/25 13:23 04/28/25 13:30 Temperature Pulse Rate 102 H 97 H Respiratory Rate 17 23 Blood Pressure 191/92 H Pulse Oximetry 95 Oxygen Delivery Method Oxygen Flow Rate 04/28/25 13:31 04/28/25 13:31 04/28/25 14:00 Temperature Pulse Rate 94 H Respiratory Rate 22 Blood Pressure 172/84 H 126/87 Pulse Oximetry Oxygen Delivery Method Oxygen Flow Rate 04/28/25 14:00 04/28/25 14:30 04/28/25 14:46 Temperature Pulse Rate 94 H 95 H Respiratory Rate 25 H 23 Blood Pressure 177/95 H Pulse Oximetry 96 94 Oxygen Delivery Method Oxygen Flow Rate 04/28/25 14:46 04/28/25 15:00 04/28/25 15:30 Temperature Pulse Rate 93 H 101 H Respiratory Rate 27 H Blood Pressure 178/80 H Pulse Oximetry 93 95 Oxygen Delivery Method Oxygen Flow Rate 04/28/25 15:30 04/28/25 16:02 04/28/25 16:03 Temperature Pulse Rate 94 H 97 H Respiratory Rate 26 H 20 Blood Pressure 184/91 H Pulse Oximetry 95 Oxygen Delivery Method Oxygen Flow Rate 04/28/25 16:03 04/28/25 16:30 04/28/25 16:31 Temperature Pulse Rate 97 H 84 Respiratory Rate 23 22 Blood Pressure 157/82 H Pulse Oximetry 97 95 Oxygen Delivery Method Oxygen Flow Rate 04/28/25 16:31 04/28/25 17:00 04/28/25 17:00 Temperature Pulse Rate 86 83 Respiratory Rate 26 H 22 Blood Pressure 158/85 H Pulse Oximetry 95 93 Oxygen Delivery Method Room Air Room Air Oxygen Flow Rate 04/28/25 18:00 Temperature 96.8 F L Pulse Rate 86 Respiratory Rate 18 Blood Pressure 154/71 H Pulse Oximetry 94 Oxygen Delivery Method Oxygen Flow Rate 0 Oxygen Delivery Method Room Air Oxygen Flow Rate 0 Objective Labs 04/28/25 10:40 04/28/25 10:40 Labs: Laboratory Results - last 24 hr 04/28/25 04/28/25 04/28/25 10:40 12:41 13:20 WBC 12.4 H RBC 5.01 Hgb 14.1 Hct 43.1 MCV 86.1 MCH 28.2 MCHC 32.7 RDW 14.2 Plt Count 455 H Neut % (Auto) 73.8 Lymph % (Auto) 18.8 L [place] % (Auto) 6.5 Eos % (Auto) 0.3 L Baso % (Auto) 0.6 Neut # (Auto) 9100 H Lymph # (Auto) 2300 [place] # (Auto) 800 Eos # (Auto) 0 Baso # (Auto) 100 PT 13.5 H INR 1.2 APTT 28 D-Dimer 836 H Sodium 140 Potassium 4.8 Chloride 104 Carbon Dioxide 28 BUN 23 H Creatinine 1.25 H Estimated GFR 44 L BUN/Creatinine Ratio 18.4 Glucose 91 Calcium 9.7 Magnesium 2.4 H Total Bilirubin 0.3 AST 36 ALT 20 Alkaline Phosphatase 116 Total Creatine Kinase 63 Troponin I < 0.012 < 0.012 NT-Pro-B Natriuret Pep 136 Total Protein 9.3 H Albumin 4.8 Globulin 4.5 H Albumin/Globulin Ratio 1.1 Lipase 830 H Procalcitonin 0.122 Assessment & Plan Time-Based Coding :: [TOTAL MINUTES] spent with patient and on the chart (including review of chart, obtaining history, exam, reviewing outside data, placing orders, documenting exam and treatment plan, and counseling patient) on [DATE]. Quality VTE Deep Vein Thrombosis/Pulmonary Embolism Present on Admission: No
[2025-04-28] MEDS: NYSTATIN POWDER 15GM 1 APPLIC TOP (20:27)
[2025-04-29 00:45] VITALS: BP 152/78; PULSE 78; RESP 14; TEMP 36.6; O2SAT 95
[2025-04-29] MEDS: CIPROFLOXACIN 400 MG/200 ML PIGGYBACK 200 MG IV (02:37)
[2025-04-29] MEDS: DEXTROSE 5%-0.9% NS 1,000 ML 100 ML IV (03:56)
[2025-04-29 05:02] LABS: Add Manual Diff / Slide Review NO; Hematocrit 39.5 % (36-46); Hemoglobin 12.9 g/dL (12.0-16.0); Lymphocytes Absolute Auto 3000 /uL (1100-4500); Mean Corpuscular HGB Conc 32.7 % (30-36); Mean Corpuscular Hemoglobin 28.3 PG (26-34); Mean Corpuscular Volume 86.6 fL (80-100); Platelet Count 379 X10^3/uL (150-400)
[2025-04-29 05:17] LABS: Blood Urea Nitrogen 18 mg/dL (7-17); Calcium 8.8 mg/dL (8.4-10.2); Carbon Dioxide 27 mmol/L (22-32); Chloride 106 mmol/L (98-107); Estimated Glomerular Filt Rate 55 mL/min (>60); Glucose 94 mg/dL (70-99); HEMOLYSIS < 15 (0-50); Lipase 163 U/L (23-300); Potassium 3.9 mmol/L (3.4-5.1); Sodium 140 mmol/L (137-145)
[2025-04-29 06:15] VITALS: BP 148/79; PULSE 81; RESP 19; TEMP 36.7; O2SAT 96
[2025-04-29] MEDS: metroNIDAZOLE 500 MG/100 ML PIGGYBACK 100 MG IV (06:29)
[2025-04-29 08:00] VITALS: BP 155/84; PULSE 91; RESP 18; TEMP 36.2; O2SAT 95
--- NOTE | 2025-04-29 08:44 | P.PN_ITS ---
Subjective Subjective Interval history: Summary: Chief complaint: Abdominal pain and chest pain with findings of pancreatitis and diverticulitis History of present illness: 04/28: 75-year-old female had epigastric pain with nausea and vomiting and abdominal pain came to the emergency room for evaluation. She reported sweats and chills nausea with occasional vomiting and pain after eating or drinking Findings in the emergency department significant for lipase of 830 white blood cell count of 12.4 D-dimer 836 BUN [address] imaging of chest abdomen and pelvis significant for sigmoid diverticulitis there is no findings of pancreatic imaging abnormality. S: Pain has resolved, she was hungry and feels well otherwise. Exam Vital Signs (past 8 hours): - 04/29/25 00:45 04/29/25 06:15 04/29/25 08:00 Temperature 97.8 F 98.1 F 97.2 F L Pulse Rate 78 81 91 H Respiratory Rate 14 19 18 Blood Pressure 152/78 H 148/79 H 155/84 H Pulse Oximetry 95 96 95 Oxygen Flow Rate 0 Oxygen Delivery Method Room Air Oxygen Flow Rate 0 Narrative Exam Narrative: NAD, alert and oriented. Fluent speech. Lungs are clear, normal rate and effort. Heart is regular, no murmur gallop or rub. Abdomen is soft, non distended. Extremities are free of edema. Objective Imaging CT scan - abdomen: Radiologist's impression: Acute uncomplicated sigmoid diverticulitis. CT scan - chest: Radiologist's impression: No aortic aneurysm or acute aortic syndrome. No acute abnormality is seen in the chest. Labs 04/29/25 04:18 04/29/25 04:18 Labs: Laboratory Results - last 24 hr 04/28/25 04/28/25 04/28/25 10:40 12:41 13:20 WBC 12.4 H RBC 5.01 Hgb 14.1 Hct 43.1 MCV 86.1 MCH 28.2 MCHC 32.7 RDW 14.2 Plt Count 455 H Neut % (Auto) 73.8 Lymph % (Auto) 18.8 L [place] % (Auto) 6.5 Eos % (Auto) 0.3 L Baso % (Auto) 0.6 Neut # (Auto) 9100 H Lymph # (Auto) 2300 [place] # (Auto) 800 Eos # (Auto) 0 Baso # (Auto) 100 PT 13.5 H INR 1.2 APTT 28 D-Dimer 836 H Sodium 140 Potassium 4.8 Chloride 104 Carbon Dioxide 28 BUN 23 H Creatinine 1.25 H Estimated GFR 44 L BUN/Creatinine Ratio 18.4 Glucose 91 Calcium 9.7 Magnesium 2.4 H Total Bilirubin 0.3 AST 36 ALT 20 Alkaline Phosphatase 116 Total Creatine Kinase 63 Troponin I < 0.012 < 0.012 NT-Pro-B Natriuret Pep 136 Total Protein 9.3 H Albumin 4.8 Globulin 4.5 H Albumin/Globulin Ratio 1.1 Lipase 830 H Procalcitonin 0.122 04/29/25 04:18 WBC 10.1 RBC 4.56 Hgb 12.9 Hct 39.5 MCV 86.6 MCH 28.3 MCHC 32.7 RDW 14.0 Plt Count 379 Neut % (Auto) 56.9 Lymph % (Auto) 30.0 [place] % (Auto) 10.4 Eos % (Auto) 1.5 L Baso % (Auto) 1.2 Neut # (Auto) 5800 Lymph # (Auto) 3000 [place] # (Auto) 1100 H Eos # (Auto) 100 Baso # (Auto) 100 PT INR APTT D-Dimer Sodium 140 Potassium 3.9 Chloride 106 Carbon Dioxide 27 BUN 18 H Creatinine 1.05 H Estimated GFR 55 L BUN/Creatinine Ratio 17.1 Glucose 94 Calcium 8.8 Magnesium Total Bilirubin AST ALT Alkaline Phosphatase Total Creatine Kinase Troponin I NT-Pro-B Natriuret Pep Total Protein Albumin Globulin Albumin/Globulin Ratio Lipase 163 D Procalcitonin PFSH Medical History Hypertension History of breast cancer Depression Social History marital status: household members: friend(s) lives independently: Yes pets and animals: Yes seatbelt use: always helmet use: Yes water heater temp set < 120 deg: Yes working smoke detector in home: Yes fire extinguisher in home: Yes carbon monox detector in home: Yes firearms in home: No do you feel safe at home: Yes Smoking Status: Never smoker second hand exposure: No alcohol intake: former substance use type: does not use Assessment & Plan Assessment & Plan narrative: 1. Sigmoid diverticulitis uncomplicated started on ciprofloxacin and Flagyl. * Continue Cipro and Flagyl * Clear liquid tonight * Advance diet as tolerated * Deescalate to oral antibiotics as indicated 2. Elevated lipase but without imaging findings to indicate pancreatitis with normal imaging a biliary system and gallbladder * Suspect elevation of lipase may be due to the diverticulitis (hollow viscus) PLAN: -continue IV antibiotics -advance diet -out of bed, ambulate. Possible discharge later today. DVT prophylaxis: * Subcutaneous heparin Time-Based Coding :: [TOTAL MINUTES] spent with patient and on the chart (including review of chart, obtaining history, exam, reviewing outside data, placing orders, documenting exam and treatment plan, and counseling patient) on [DATE]. Quality VTE Deep Vein Thrombosis/Pulmonary Embolism Present on Admission: No
[2025-04-29] MEDS: PANTOPRAZOLE 40 MG VIAL 20 MG IV (09:21)
[2025-04-29 09:22] VITALS: BP 155/84; PULSE 92
[2025-04-29] MEDS: ATORVASTATIN 20 MG TABLET 40 MG PO (09:22)
[2025-04-29] MEDS: VENLAFAXINE ER 75 MG CAP 225 MG PO (09:22)
[2025-04-29 09:23] VITALS: BP 155/84; PULSE 92
[2025-04-29] MEDS: NYSTATIN POWDER 15GM 1 APPLIC TOP (09:23)
[2025-04-29] MEDS: METOPROLOL ER 25 MG TABLET PO (09:23)
--- NOTE | 2025-04-29 13:38 | P.DS_ITS ---
History of Present Illness History of Present Illness Chief complaint: Chest pain secondary to diverticulitis and pancrea Narrative: From H&P: Chief complaint: Abdominal pain and chest pain with findings of pancreatitis and diverticulitis History of present illness: 04/28: 75-year-old female had epigastric pain with nausea and vomiting and abdominal pain came to the emergency room for evaluation. She reported sweats and chills nausea with occasional vomiting and pain after eating or drinking Findings in the emergency department significant for lipase of 830 white blood cell count of 12.4 D-dimer 836 BUN [address] imaging of chest abdomen and pelvis significant for sigmoid diverticulitis there is no findings of pancreatic imaging abnormality Discharge Providers Provider Date of admission: 04/28/25 15:21 Discharge Date: 04/29/25 Primary care physician: Katja Guzmán MD Consults: None. Discharge provider: Anselmo Blakely MD Summary Hospital Course Discharge Diagnosis: 1. Sigmoid diverticulitis uncomplicated, improved. 2. Elevated lipase but without imaging findings to indicate pancreatitis with normal imaging a biliary system and gallbladder Hospital Course: She was admitted for pain and diverticulitis. She was treated with IV antibiotics and improved substantially over the next day. On the day of discharge, she had no pain and a soft abdomen. Status at Discharge Cognitive/behavioral status at discharge: oriented Functional status at discharge: independent ambulation Overall status at discharge: patient is back to baseline Time Spent with Patient Time spent: Greater than 30 minutes Exam Vital Signs (past 8 hours): - 04/29/25 06:15 04/29/25 08:00 04/29/25 09:22 Temperature 98.1 F 97.2 F L Pulse Rate 81 91 H 92 H Respiratory Rate 19 18 Blood Pressure 148/79 H 155/84 H 155/84 H Pulse Oximetry 96 95 Oxygen Flow Rate 0 04/29/25 09:23 Temperature Pulse Rate 92 H Respiratory Rate Blood Pressure 155/84 H Pulse Oximetry Oxygen Flow Rate Oxygen Delivery Method Room Air Oxygen Flow Rate 0 Narrative Exam Narrative: NAD, alert and oriented. Fluent speech. Lungs are clear, normal rate and effort. Heart is regular, no murmur gallop or rub. Abdomen is soft, non distended. Extremities are free of edema. Objective ECG Impression: Intervals [place] Rate: 104 P: 58 IN: 160 QRS: 4 QRSD: 74 T: 45 QT: 336 QTc: 441 Interpretive Statements Sinus tachycardia Nonspecific ST abnormality Imaging CT scan - abdomen: Radiologist's impression: CT scan - abdomen: Radiologist's impression: Acute uncomplicated sigmoid diverticulitis. CT scan - chest: Radiologist's impression: CT scan - chest: Radiologist's impression: No aortic aneurysm or acute aortic syndrome. No acute abnormality is seen in the chest. Labs 04/29/25 04:18 04/29/25 04:18 Labs: Laboratory Results - last 24 hr 04/28/25 04/29/25 13:20 04:18 WBC 10.1 RBC 4.56 Hgb 12.9 Hct 39.5 MCV 86.6 MCH 28.3 MCHC 32.7 RDW 14.0 Plt Count 379 Neut % (Auto) 56.9 Lymph % (Auto) 30.0 [place] % (Auto) 10.4 Eos % (Auto) 1.5 L Baso % (Auto) 1.2 Neut # (Auto) 5800 Lymph # (Auto) 3000 [place] # (Auto) 1100 H Eos # (Auto) 100 Baso # (Auto) 100 Sodium 140 Potassium 3.9 Chloride 106 Carbon Dioxide 27 BUN 18 H Creatinine 1.05 H Estimated GFR 55 L BUN/Creatinine Ratio 17.1 Glucose 94 Calcium 8.8 Lipase 163 D Procalcitonin 0.122 PFSH Medical History Hypertension History of breast cancer Depression Social History marital status: household members: friend(s) lives independently: Yes pets and animals: Yes seatbelt use: always helmet use: Yes water heater temp set < 120 deg: Yes working smoke detector in home: Yes fire extinguisher in home: Yes carbon monox detector in home: Yes firearms in home: No do you feel safe at home: Yes Smoking Status: Never smoker second hand exposure: No alcohol intake: former substance use type: does not use Discharge Assessment & Plan Assessment and Plan Assessment: 1. Diverticulitis, improved. 2. Elevated lipase, stable. Plan of Treatment: Stable for discharge. Will be on oral antibiotics for 7 more days (Augmentin). Discharge Plan Discharge Plan Patient Disposition: Home Provider Discharge Comment: Diverticulitis improved, stable for discharge home on oral antibiotics. PCP within 1 week for follow up. Discharge orders & Medications Prescriptions: New amoxicillin-pot clavulanate 875-125 mg tablet 1 tab PO BID Qty: 14 0RF Continued mirtazapine 45 mg tablet 45 mg PO BEDTIME Qty: 90 3RF venlafaxine 150 mg tablet extended release 24hr 150 mg PO QDAY Qty: 90 3RF venlafaxine 75 mg capsule,extended release 24hr 75 mg PO DAILY Qty: 90 3RF nystatin 100,000 unit/gram powder 1 applic topical BID Qty: 60 3RF ramipril 10 mg capsule 10 mg PO DAILY Qty: 90 3RF metoprolol succinate 25 mg tablet extended release 24 hr 25 mg PO BID Qty: 180 0RF atorvastatin 40 mg tablet 40 mg PO DAILY Qty: 90 3RF Follow up/Referrals: Katja Guzmán MD [Primary Care Provider, [facility]] Discharge Health Status Multidrug resistant organism: No MDRO Diet/Activity/Treatments Diet: Regular Visit Report/Discharge Packet Instructions: DI for Diverticulitis Stand Alone Forms: Patient Portal/API Discharge Data Primary Care Provider: Katja Guzmán Quality VTE Deep Vein Thrombosis/Pulmonary Embolism Present on Admission: No
--- NOTE | 2025-04-29 14:44 | CM.DANOTE ---
B DCP Assessment note pt is a 75yo F admitted with diverticulitis/pancreatitis. PCP Ramirez Leon [employer] and [employer] FISH TECHNOLOGIST reviewed EMR per chart review, pt lives indep in [place] with friends. local brother Amanuel is her emergency contact. per provider in morning rounds, potential dc later in afternoon. per RN, pt moving around okay, pain and nausea well controlled. potentially good benefit from ETOH resourcs. per chart review, pt reports being a former drinker/does not actively drink. Pt left prior to meeting with this FISH TECHNOLOGIST P: home today with OP f/u. CM team will continue to follow as needed in case any DCP needs should arise MANUELITO Devlin Discharge Planning/Care Management Advanced directive, confirm from FAMILY Start: 04/28/25 17:54 Freq: Q24H Status: Discharge Protocol: Document 04/28/25 17:54 BT (Rec: 04/28/25 18:20 BT Desktop) Advance Directive, confirm on record Time 18:20 Person contacted Pt Copy received No CM Discharge Assessment Start: 04/28/25 16:34 Freq: Status: Discharge Protocol: Document 04/29/25 14:43 SL (Rec: 04/29/25 14:44 SL Desktop) Discharge Planning Assessment Assigned Discharge MANUELITO Vale Diagrammer DPOA/Assigned Amnauel brothdexter Designee Name Contact Information [phone] Advance Directives? Yes Advance Directives No on File History Provided By Patient Prior Living House Arrangements Household Members friend(s) Type of Drives own vehicle transporation used prior to admit Independent with ADL Yes 's Is patient alert and Yes oriented? Discharge Plan Home Review Status In Process Please Provide Date 04/29/25 Initial DC Assessment Was Performed Next Review Type Continued Stay Review
== END 2025-04-29 13:59 | disposition home or self-care (01) | DRG 392 ==
LOC: ED 10:23 → AC 16:07
PROVIDERS: Admitting Provider Internal Medicine; Emergency Provider Emergency Medicine; PCP Student in an Organized Health Care Education/Training Program; Referring Provider Emergency Medicine; Visit Provider Internal Medicine
DX: K57.32 Diverticulitis of large intestine without perforation or abscess without bleeding (principal); R74.8 Abnormal levels of other serum enzymes; F32.A Depression, unspecified; R07.9 Chest pain, unspecified; I10 Essential (primary) hypertension; Z85.3 Personal history of malignant neoplasm of breast
CPT/HCPCS: 36415; 71045; 71275; 74177; 80048; 80053; 81003; 82550; 83690; 83735; 83880; 84145; 84484; 85025; 85379; 85610; 85730; 93005; 96365; 96367; 96375; 99284; J0744; J2270; J2470; Q9967